=== PATIENT | male | born 1960 | race Caucasian/White ===

== ENCOUNTER 2018-01-04 16:24 | Inpatient (IN) | payer OTHER ==
[~2018-01-04] VITALS: Ht 170.2 cm; Wt 93.0 kg
[2018-01-04] MEDS ORDERED: HYDROCODONE/APAP 10MG-325MG TAB PO ONE (16:45)
--- NOTE | 2018-01-04 17:32 | Diagnostic Imaging Report ---
PROCEDURE:KNEE RIGHT THREE VIEWS COMPARISON:None. INDICATIONS:RIGHT KNEE PAIN, FALL SATUR FINDINGS: 3 views of the right knee (AP, lateral, and oblique) There are no fractures, dislocations, lytic or blastic lesions. The bones are well-mineralized. There is chondrocalcinosis of the knee joint. Mild osteoarthritis with sharpening of the tibial spines, small lateral and patellofemoral osteophytes. Prominent vascular calcifications CONCLUSION: No acute fracture or dislocation of the right knee. 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 Dictated by: Zuhair Rivero M.D. on 01/04/2018 at 17:37 Electronically approved by: Zuhair Rivero M.D. on 01/04/2018 at 17:37
[2018-01-04 17:54] LABS: BASOPHILS # (AUTO) 0.1 (0.0-0.1); BASOPHILS % 0.4 % (0.0-1.0); EOSINOPHILS # (AUTO) 0.4 (0.0-0.4); EOSINOPHILS % 3.3 % (0.0-6.0); HEMATOCRIT 35.2 % (38.2-49.6); LYMPHOCYTES # (AUTO) 1.4 (1.0-3.2); LYMPHOCYTES % 10.8 % (18.0-39.1); MEAN CORPUSCULAR HGB CONC 34.1 g/dL (31-35); NEUTROPHILS # (AUTO) 9.7 (2.1-6.9); NEUTROPHILS % 77.1 % (38.7-80.0); PLATELET COUNT 205 x10e3/uL (140-360); RED BLOOD COUNT 4.14 x10e6/uL (4.3-5.7); RED CELL DISTRIBUTION WIDTH 12.2 % (11.7-14.4)
[2018-01-04] MEDS ORDERED: VANCOMYCIN 1GM/NS 250 ML 250 ML IV SCH (18:00)
[2018-01-04 18:09] LABS: ANION GAP 16.1 mmol/L (8-16); CALCIUM 9.7 mg/dL (8.4-10.2); CREATININE, SERUM 1.93 mg/dL (0.72-1.25); POTASSIUM 5.1 mmol/L (3.5-5.1)
[2018-01-04] MEDS ORDERED: ONDANSETRON HCL INJ 2 MG/ML VIAL IV STA (18:13)
[2018-01-04] MEDS ORDERED: HYDROMORPHONE 1MG/1ML INJ IV STA (18:21)
[2018-01-04 18:33] LABS: BODY FLUID COLOR YELLOW; BODY FLUID TYPE SYNOVIAL
[2018-01-04 18:34] LABS: BODY FLUID APPEARANCE TURBID
[2018-01-04 18:35] LABS: RBC,BODY FLUID 319 cells/uL; WBC,BODY FLUID 19250 cells/uL
[2018-01-04] MEDS ORDERED: SODIUM CHLORIDE 0.9% 1000ML 1,000 ML IV STA (19:16)
[2018-01-04 19:23] LABS: LYMPHOCYTES,BODY FLUID 3 %; MONO/MACROPHG,BODY FLUID 6 %; NEUTROPHILS,BODY FLUID 91 %
[2018-01-04] MEDS ORDERED: INSULIN REGULAR, HUMAN 100 UNIT/1 ML 3ML VIAL SQ ONE (19:30)
[2018-01-04] MEDS ORDERED: DEXTROSE 50% SYRINGE 50 ML IV PRN (20:15)
[2018-01-04] MEDS: INSULIN REGULAR, HUMAN 100 UNIT/1 ML 3ML VIAL SQ SCH (21:00)
[2018-01-04] MEDS: HYDROMORPHONE 1MG/1ML INJ IV PRN (21:23)
[2018-01-04] MEDS: ONDANSETRON HCL INJ 2 MG/ML VIAL IV PRN (21:24)
[2018-01-04 21:37] VITALS: BP 203/94
[2018-01-04] MEDS: VANCOMYCIN 750MG/NS 150ML IVPB 150 ML IV SCH (22:04)
[2018-01-04] MEDS: SODIUM CHLORIDE 0.9% 1000ML 1,000 ML IV SCH (22:04)
[2018-01-04 22:32] VITALS: BP 184/90
[2018-01-04 22:41] VITALS: BP 184/90
[2018-01-04 22:44] VITALS: BP 184/90
[2018-01-04 23:10] VITALS: BP 139/83
[2018-01-04] MEDS: PIPERACILLIN/TAZO 2.25 GM 50 ML IV SCH (23:11)
[2018-01-05] VITALS: BP 174/98
[2018-01-05] MEDS: HYDROMORPHONE 1MG/1ML INJ IV PRN (01:32)
[2018-01-05] MEDS: ONDANSETRON HCL INJ 2 MG/ML VIAL IV PRN (01:32)
[2018-01-05 05:45] LABS: BASOPHILS % 0.4 % (0.0-1.0); EOSINOPHILS # (AUTO) 0.5 (0.0-0.4); EOSINOPHILS % 4.6 % (0.0-6.0); HEMATOCRIT 34.4 % (38.2-49.6); HEMOGLOBIN 11.5 g/dL (14.0-18.0); LYMPHOCYTES # (AUTO) 1.6 (1.0-3.2); LYMPHOCYTES % 13.6 % (18.0-39.1); MEAN CORPUSCULAR HGB CONC 33.4 g/dL (31-35); MEAN CORPUSCULAR VOLUME 86.9 fL (81-99); MONOCYTES % 8.5 % (4.4-11.3); NEUTROPHILS # (AUTO) 8.3 (2.1-6.9); NEUTROPHILS % 72.5 % (38.7-80.0); PLATELET COUNT 208 x10e3/uL (140-360); RED BLOOD COUNT 3.96 x10e6/uL (4.3-5.7); RED CELL DISTRIBUTION WIDTH 12.3 % (11.7-14.4)
[2018-01-05] MEDS: SODIUM CHLORIDE 0.9% 1000ML 1,000 ML IV SCH (05:53)
[2018-01-05] MEDS: PIPERACILLIN/TAZO 2.25 GM 50 ML IV SCH ×3 (05:53→17:26)
[2018-01-05 06:12] LABS: ALBUMIN 2.7 g/dL (3.5-5.0); ALBUMIN/GLOBULIN RATIO 0.6 (0.8-2.0); ANION GAP 14.7 mmol/L (8-16); CALCIUM 9.2 mg/dL (8.4-10.2); CREATININE, SERUM 1.77 mg/dL (0.72-1.25); POTASSIUM 4.7 mmol/L (3.5-5.1)
[2018-01-05 07:30] VITALS: BP 175/77
[2018-01-05 08:00] VITALS: BP 175/77
[2018-01-05] MEDS ORDERED: DEXTROSE 50% SYRINGE 50 ML IV PRN (08:15)
[2018-01-05] MEDS: HYDROCODONE/APAP 5MG-325MG TAB PO PRN ×3 (08:43→20:48)
[2018-01-05] MEDS: INSULIN REGULAR, HUMAN 100 UNIT/1 ML 3ML VIAL SQ SCH (08:54)
[2018-01-05] MEDS: VANCOMYCIN 750MG/NS 150ML IVPB 150 ML IV SCH ×2 (09:09→20:39)
[2018-01-05] MEDS: HYDRALAZINE HCL 20 MG/ML VIAL IV PRN (09:23)
[2018-01-05] MEDS ORDERED: ATORVASTATIN CA20 MG PO (09:48)
[2018-01-05] MEDS ORDERED: METFORMIN HCL500 M2 PO (09:48)
[2018-01-05] MEDS ORDERED: LISINOPRIL10 MG PO (09:48)
[2018-01-05] MEDS ORDERED: ATENOLOL50 MG PO (09:48)
[2018-01-05] MEDS: INSULIN LISPRO 100 UNIT/1 ML 3ML VIAL SQ SCH ×3 (11:33→21:54)
[2018-01-05 11:47] VITALS: BP 128/76
[2018-01-05] MEDS: ACETAMINOPHEN 325 MG TAB PO PRN (12:51)
[2018-01-05 16:00] VITALS: BP 148/79
[2018-01-05] MEDS: FAMOTIDINE 20 MG TAB PO SCH (16:35)
[2018-01-05 20:00] VITALS: BP 143/80
[2018-01-05] MEDS: ATORVASTATIN 40 MG TAB PO SCH (20:48)
[2018-01-05] MEDS ORDERED: ATORVASTATIN 20 MG TAB PO SCH (21:00)
[2018-01-06] VITALS (8 sets, daily range): BP systolic 144–205; BP diastolic 78–108
[2018-01-06] MEDS: HYDRALAZINE HCL 20 MG/ML VIAL IV PRN ×2 (00:30→20:20)
[2018-01-06] MEDS: PIPERACILLIN/TAZO 2.25 GM 50 ML IV SCH ×3 (00:40→12:24)
[2018-01-06] MEDS: SODIUM CHLORIDE 0.9% 1000ML 1,000 ML IV SCH ×2 (00:54→12:38)
[2018-01-06] MEDS: HYDROMORPHONE 1MG/1ML INJ IV PRN (00:55)
[2018-01-06] MEDS: ACETAMINOPHEN 325 MG TAB PO PRN (02:16)
[2018-01-06 05:05] LABS: BASOPHILS % 0.4 % (0.0-1.0); EOSINOPHILS # (AUTO) 0.6 (0.0-0.4); EOSINOPHILS % 5.5 % (0.0-6.0); HEMATOCRIT 31.7 % (38.2-49.6); HEMOGLOBIN 10.6 g/dL (14.0-18.0); LYMPHOCYTES # (AUTO) 1.6 (1.0-3.2); LYMPHOCYTES % 14.7 % (18.0-39.1); MEAN CORPUSCULAR HEMOGLOBIN 28.8 pg (28-32); MEAN CORPUSCULAR HGB CONC 33.4 g/dL (31-35); MEAN CORPUSCULAR VOLUME 86.1 fL (81-99); MONOCYTES # (AUTO) 0.9 (0.2-0.8); MONOCYTES % 8.3 % (4.4-11.3); NEUTROPHILS # (AUTO) 7.6 (2.1-6.9); NEUTROPHILS % 70.7 % (38.7-80.0); PLATELET COUNT 213 x10e3/uL (140-360); RED BLOOD COUNT 3.68 x10e6/uL (4.3-5.7); RED CELL DISTRIBUTION WIDTH 12.2 % (11.7-14.4)
[2018-01-06 05:25] LABS: ANION GAP 12.5 mmol/L (8-16); CALCIUM 8.7 mg/dL (8.4-10.2); CREATININE, SERUM 1.64 mg/dL (0.72-1.25); MAGNESIUM 1.9 MG/DL (1.3-2.1); POTASSIUM 5.5 mmol/L (3.5-5.1)
[2018-01-06] MEDS: HYDROCODONE/APAP 5MG-325MG TAB PO PRN ×2 (06:01→10:48)
[2018-01-06] MEDS: VANCOMYCIN 750MG/NS 150ML IVPB 150 ML IV SCH (08:18)
[2018-01-06] MEDS: FAMOTIDINE 20 MG TAB PO SCH ×2 (08:18→17:22)
[2018-01-06] MEDS: LISINOPRIL 20 MG TAB PO SCH (08:18)
[2018-01-06] MEDS: ATENOLOL 50 MG TAB PO SCH (08:19)
[2018-01-06] MEDS: INSULIN LISPRO 100 UNIT/1 ML 3ML VIAL SQ SCH ×4 (08:58→21:00)
[2018-01-06] MEDS ORDERED: LISINOPRIL 10 MG TAB PO SCH (09:00)
[2018-01-06] MEDS ORDERED: TRAMADOL HCL 50 MG TAB PO PRN (10:30)
[2018-01-06] MEDS ORDERED: SOD POLYSTYRENE SULFONATE SUSP 15 GM/60 ML BTL PO NR (10:30)
[2018-01-06] MEDS ORDERED: FENTANYL 25 MCG/HR PATCH TOP SCH (11:45)
[2018-01-06] MEDS: DOCUSATE SODIUM 100 MG CAP PO SCH ×2 (12:01→17:22)
[2018-01-06] MEDS: POLYETHYLENE GLYCOL 3350 17 GM PACK PO SCH ×2 (12:01→17:22)
--- NOTE | 2018-01-06 13:18 | Consultation ---
DATE OF CONSULTATION: This patient is a 57-year-old who has history of obesity. The patient a few days ago fell at the curb outside a store. Since then he has been having pain in his leg with abrasion, getting progressively worse. Also, there was swelling in the knee itself. Patient came to the emergency room where he was admitted. He had an x-ray that showed there is no acute fracture. Findings suggestive of CPPD arthropathy in the right knee. Apparently he underwent arthrocentesis that showed WBC of 19,250 and RBCs 309. His sodium is 135, potassium 5.5, creatinine 1.64, glucose of 309. PHYSICAL EXAMINATION GENERAL: He is currently alert and oriented, does not seem to be in acute distress. VITALS: Stable, currently afebrile. HEENT: Not icteric. NECK: Supple. CHEST: Clear. HEART: No murmur. ABDOMEN: Soft. KNEE: There is an abrasion on the knee. There are some swelling and redness. IMPRESSION: Trauma to the knee with effusion, probably reaction, reactive to the trauma. I do not think there is infection. Maybe there is some cellulitis. Will discontinue vancomycin and Zosyn. Will put him on clindamycin. Can switch to oral clindamycin in the morning. Will also give him Solu-Medrol to help with the inflammation. If the pain is better tomorrow, can discharge with oral clindamycin and a Medrol pack. Will follow. Job#: [id number]
[2018-01-06] MEDS: CLINDAMYCIN 600MG/D5W 50ML 50 ML IV SCH ×2 (15:00→21:39)
[2018-01-06] MEDS: HYDROCODONE/APAP 10MG-325MG TAB PO PRN ×2 (15:48→21:15)
[2018-01-06] MEDS ORDERED: DOCUSATE SODIUM 100 MG CAP PO SCH (17:00)
[2018-01-06] MEDS ORDERED: POLYETHYLENE GLYCOL 3350 17 GM PACK PO SCH (17:00)
[2018-01-06] MEDS: METHYLPREDNISOLONE SOD SUCC 40 MG/ML VIAL IV SCH (20:57)
[2018-01-06] MEDS: ATORVASTATIN 40 MG TAB PO SCH (20:57)
[2018-01-06] MEDS: BALSAM PERU/CASTOR OIL 60 GM OINT...G. TP SCH ×2 (20:57→21:00)
[2018-01-07] MEDS: SODIUM CHLORIDE 0.9% 1000ML 1,000 ML IV SCH (00:24)
[2018-01-07 00:26] VITALS: BP 177/92
[2018-01-07 04:00] VITALS: BP 193/97
[2018-01-07] MEDS: HYDRALAZINE HCL 20 MG/ML VIAL IV PRN ×2 (05:00→12:21)
[2018-01-07] MEDS: HYDROCODONE/APAP 10MG-325MG TAB PO PRN ×2 (05:00→12:21)
[2018-01-07 05:13] LABS: BASOPHILS % 0.2 % (0.0-1.0); EOSINOPHILS % 0.1 % (0.0-6.0); HEMATOCRIT 36.1 % (38.2-49.6); HEMOGLOBIN 11.9 g/dL (14.0-18.0); LYMPHOCYTES # (AUTO) 0.8 (1.0-3.2); LYMPHOCYTES % 7.4 % (18.0-39.1); MEAN CORPUSCULAR VOLUME 87.8 fL (81-99); MONOCYTES # (AUTO) 0.1 (0.2-0.8); MONOCYTES % 1.1 % (4.4-11.3); NEUTROPHILS # (AUTO) 9.6 (2.1-6.9); NEUTROPHILS % 90.5 % (38.7-80.0); PLATELET COUNT 255 x10e3/uL (140-360); RED BLOOD COUNT 4.11 x10e6/uL (4.3-5.7); RED CELL DISTRIBUTION WIDTH 12.1 % (11.7-14.4)
[2018-01-07 05:38] LABS: ANION GAP 15.9 mmol/L (8-16); CALCIUM 9.6 mg/dL (8.4-10.2); CREATININE, SERUM 1.57 mg/dL (0.72-1.25); MAGNESIUM 2.1 MG/DL (1.3-2.1); POTASSIUM 4.9 mmol/L (3.5-5.1)
[2018-01-07] MEDS: CLINDAMYCIN 600MG/D5W 50ML 50 ML IV SCH (05:39)
[2018-01-07] MEDS ORDERED: BALSAM PERU/CASTOR OIL 5 GM OINT...G. TP SCH (06:00)
[2018-01-07] MEDS: ACETAMINOPHEN 325 MG TAB PO PRN (06:12)
[2018-01-07] MEDS: ATENOLOL 50 MG TAB PO SCH (07:22)
[2018-01-07] MEDS: INSULIN LISPRO 100 UNIT/1 ML 3ML VIAL SQ SCH ×2 (07:30→12:30)
[2018-01-07 08:05] VITALS: BP 159/82
[2018-01-07] MEDS: FAMOTIDINE 20 MG TAB PO SCH (08:52)
[2018-01-07] MEDS: DOCUSATE SODIUM 100 MG CAP PO SCH (08:52)
[2018-01-07] MEDS: METHYLPREDNISOLONE SOD SUCC 40 MG/ML VIAL IV SCH (08:52)
[2018-01-07] MEDS: POLYETHYLENE GLYCOL 3350 17 GM PACK PO SCH (08:52)
[2018-01-07] MEDS: LISINOPRIL 20 MG TAB PO SCH (08:53)
[2018-01-07] MEDS ORDERED: PREDNISONE10 MG PO (09:13)
[2018-01-07] MEDS ORDERED: CLEOCIN HCL150 MG PO (09:13)
[2018-01-07] MEDS ORDERED: ULTRAM 50MG50 MG PO (09:13)
[2018-01-07] MEDS: BALSAM PERU/CASTOR OIL 60 GM OINT...G. TP SCH (09:22)
[2018-01-07] MEDS ORDERED: NEOMYCIN/POLYMYXIN/BACITRACIN 15 GM TUBE TOP SCH (09:30)
[2018-01-07] MEDS ORDERED: CLINDAMYCIN HC150 MG PO (10:31)
[2018-01-07 12:00] VITALS: BP 160/92
[2018-01-07] MEDS ORDERED: INSULIN LISPRO 100 UNIT/1 ML 3ML VIAL SQ SCH ×2 (12:15→12:30)
--- NOTE | 2018-01-07 20:32 | Discharge Summary ---
AUDIO CUTTING IN AND OUT IN MULTIPLE PORTIONS OF THE REPORT ADMISSION DIAGNOSES 1. Right knee cellulitis wound. 2. Type-2 diabetes. 3. Acute kidney injury versus chronic kidney disease. 4. Hyponatremia. DISCHARGE DIAGNOSES 1. Right knee cellulitis wound. 2. Type-2 diabetes. 3. Acute kidney injury versus chronic kidney disease. 4. Hyponatremia. 5. Ruled out right knee fracture. 6. Ruled out septic joint arthritis. HISTORY: Patient has history of type-2 diabetes, high blood pressure. Surgical history of left rotator cuff surgery. HOSPITAL COURSE: A 57-year-old male complains of knee pain and wounds, status post trip on a curb on Wednesday. He started to bleed and swell right after. He denies fever and drainage. He went home and cleaned the wound and applied antibiotic ointment. Since then, he complains of limited range of motion and strength of right lower extremity. Pain is worse with movement, nothing improved the pain. On admission, patient was started on vancomycin and Zosyn. Patient had a right knee aspiration in the ER and the culture was negative. X-ray showed no acute fracture or dislocation. Patient was resumed on home medications for other diagnosis. He was started on IV fluids for the SONI. Patient's pain was controlled with fentanyl patch and steroids. Knee improved on the IV antibiotics. So, per ID, patient was sent home on clindamycin for 14 more days, as well as the p.o. steroids. On day of discharge, WBC 3, hemoglobin/hematocrit 36. Sodium 133, , creatinine 1.57, BUN . Vital signs stable. Patient afebrile. He will discharge home and follow up in 2 weeks. Patient understands discharge instructions and followup and agrees to plan. Dictated by: Camille Mcnamara NP TORREY MCNEILL MD Job#: [id number] CQ
== END 2018-01-07 13:31 | disposition home or self-care (01) | DRG 603 ==
LOC: ER 16:24 → ERHOLD 20:11 → MED/SURG2 21:42
PROVIDERS: ADMIT Internal Medicine; ATTEND Internal Medicine
PROC: 0S9C3ZX Drainage of Right Knee Joint, Percutaneous Approach, Diagnostic (ICD-10-PCS; principal; 2018-01-04)
DX: L03.115 Cellulitis of right lower limb (principal); E87.1 Hypo-osmolality and hyponatremia; N17.9 Acute kidney failure, unspecified; Z83.3 Family history of diabetes mellitus; Z88.5 Allergy status to narcotic agent; R51 Headache; E66.9 Obesity, unspecified; Z71.3 Dietary counseling and surveillance; N18.9 Chronic kidney disease, unspecified; S80.211A Abrasion, right knee, initial encounter; W01.0XXA Fall on same level from slipping, tripping and stumbling without subsequent striking against object, initial encounter; Y93.01 Activity, walking, marching and hiking; Y92.480 Sidewalk as the place of occurrence of the external cause; K59.00 Constipation, unspecified; E87.5 Hyperkalemia; M25.461 Effusion, right knee; Z68.32 Body mass index [BMI] 32.0-32.9, adult; I12.9 Hypertensive chronic kidney disease with stage 1 through stage 4 chronic kidney disease, or unspecified chronic kidney disease; E11.22 Type 2 diabetes mellitus with diabetic chronic kidney disease
CPT/HCPCS: 36415; 80048; 80053; 82948; 83036; 83735; 85025; 87070; 87205; 89051; 93005; 99284; J0360; J1170; J2405; J2543; J2920; J3370; J7030

== ENCOUNTER 2020-03-07 15:36 | Emergency (ER) | payer MEDICARE, OTHER ==
[~2020-03-07] VITALS: Ht 172.7 cm; Wt 98.5 kg
[~2020-03-07 15:36] MED LIST: ATENOLOL50 MG PO; ATORVASTATIN CA20 MG PO; CLEOCIN HCL150 MG PO; CLINDAMYCIN HC150 MG PO; LISINOPRIL10 MG PO; METFORMIN HCL500 M2 PO; PREDNISONE10 MG PO; ULTRAM 50MG50 MG PO
[2020-03-07] MEDS ORDERED: MORPHINE SULFATE 2 MG/ML SYR 1ML IV STA (16:05)
[2020-03-07] MEDS ORDERED: ONDANSETRON HCL INJ 2MG/ML 2ML 2 MG/ML VIAL IV STA (16:05)
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
[2020-03-07] MEDS ORDERED: MORPHINE SULFATE INJ 4 MG/ML INJ 1ML ONE (16:24)
[2020-03-07] MEDS ORDERED: ONDANSETRON HCL INJ 2MG/ML 2ML 2 MG/ML VIAL ONE (16:24)
[2020-03-07] MEDS ORDERED: CEFEPIME 2 GM/NS 0.9% 100 ML 100 ML IV STA (16:33)
[2020-03-07] MEDS ORDERED: VANCOMYCIN 1GM/NS 250 ML 250 ML IV ONE (16:45)
--- NOTE | 2020-03-07 16:46 | NUR ---
Pt is very poor historian
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
--- OUTSIDE RECORDS SUMMARY | 2020-03-07 16:52 | XMS REPORT | Clinical Summary ---
Author Author [facility] Organization [facility] Address Unknown Phone Unavailable Care Team Providers Care Handbag Finisher Name Role Phone Pranay Issa MD PCP Allergies Comments Active Allergy Reactions Severity Noted Date HALLUCINATE Morphine Other (See 06/21/2017 Comments) Medications End Date Status Medication Sig Dispensed Refills Start Date Active atenolol (TENORMIN) 50 MG Take 50 mg by 0 tablet mouth. Active multivitamin (THERAGRAN) Take 1 tablet 0 tablet by mouth daily. Active atorvastatin (LIPITOR) 40 Take 40 mg by 0 MG tablet mouth daily. Active predniSONE (DELTASONE) 10 Take by mouth 0 mg tablet pack daily. follow package directions Active metFORMIN (GLUCOPHAGE) Take 500 mg 0 500 mg tablet by mouth 2 (two) times a day with meals. 04/12/2019 Discontinued (Discontinued b y another clinician) lisinopril Take 40 mg by 0 (PRINIVIL,ZESTRIL) 40 mg mouth daily. tablet Active Problems Problem Noted Date Tremors of nervous system 03/25/2018 Follow-up examination after orthopedic surgery 10/21 S/P left rotator cuff repair 09/15/2017 Nontraumatic rupture of left long head biceps tendon 09/02/2017 Acute pain of left shoulder 06/18/2017 Obesity (BMI 33.86) 06/18/2017 Complete tear of left rotator cuff 04/16/2017 Partial tear subscapularis tendon, left, subsequent e ncounter 04/16/2017 Encounters Care Team Description Date Type Specialty Benja Brush MD S/P left rotator cuff repair (Primary Dx ); Tremors of nervous system 01/10/2020 Office Visit Orthopedic Surgery 01/10/2020 Travel 01/04/2020 Travel Benja Brush MD Chronic left shoulder pain (Primary Dx) 04/12/2019 Office Visit Orthopedic Surgery after 03/07/2019 Surgical History Surgery Date Site/Laterality Comments RIBS UNILATERAL KNEE ARTHROSCOPY Left REPAIR, ROTATOR CUFF, 09/08/2017 Shoulder/Left Procedur e: REPAIR, ROTATOR CUFF, ARTHROSCOPIC ARTHROSCOPIC-LEFT; Surgeon : Benja Brush MD; Location: [facility]; Service: Orthop edics; Laterality: Left; Medical devices from this surgery are i n the Implants section. ACROMIOPLASTY 09/08/2017 Shoulder/Left Procedure: LEFT , WITH BICEPS TENDON DEBRIDEMENT; Surgeon: Benja Brush MD; Locatio n: [facility]; Service: Orthopedics; Laterality: Left; Medical devices from this surgery are i n the Implants section. ORTHOPEDIC SURGERY 09/08/2017 left shoulder Medical History Medical History Date Comments Hypertension Diabetes mellitus (HCC) Reflux gastritis Family History Medical History Relation Name Comments No Known Problems Father No Known Problems Mother Relation Name Status Comments Father Mother Social History Date Tobacco Use Types Packs/Day Years Used Never Smoker Smokeless Tobacco: Never Used Drinks/Week oz/Week Comments Alcohol Use SOCIALLY Yes Sex Assigned at Date Recorded Not on file Last Filed Vital Signs Reading Time Taken Comments Vital Sign - - Blood Pressure - - Pulse - - Temperature - - Respiratory Rate - - Oxygen Saturation - - Inhaled Oxygen Concentration 93 kg (205 lb) 01/10/2020 12:59 PM CDT Weight 170.2 cm (5' 7") 01/10/2020 12:59 PM CDT Height 32.11 01/10/2020 12:59 PM CDT Body Mass Index Plan of Treatment Health Maintenance Due Date Last Done Comments DIABETIC RETINAL EYE EXAM 1961 DIABETIC FOOT EXAM 10/05/1971 URINE MICROALBUMIN 10/05/1971 COLONOSCOPY SCREENING 10/05/2011 SHINGLES VACCINES (#1) 10/05/2011 INFLUENZA VACCINE 01/06/2020 Implants Device Identifier Shelf Expiration Date Model / Serial / L ot Implanted Type Area Manufactur er 05/06/2022 AR [id number] / / [id number] Apollorf Xl90, Aspirating Ablator IPM Left: Should er ARTHREX 90 - [id number] IMPLANT ORTHOPEDIC Implanted: Qty: 1 on 09/08/2017 by DEVICES Benja De Oliveira MD at [facility] Description:Not an implant. This is a supply 02/04/2019 AR [id number] / / [id number] Lysite Sut Swivelock C 5.5x19.1mm - Orthopedic Left: Shou lder ARTHREX [id number] Implanted: Qty: 1 on 09/08/2017 by Implants Benja Brush MD at [facility] 11/04/2018 AR [id number] / / [id number] Lysite Sut Swivelock C 5.5x19.1mm - Orthopedic Left: Shou lder ARTHREX [id number] [employer] Implanted: Qty: 1 on 09/08/2017 by Implants Benja Brush MD at [facility] 03/06/2019 AR [id number] / / [id number] Lysite Sut Swivelock Biocmpst C Orthopedic Left: Shoulder ARTHREX Vntd 4.75x19.1mm - [id number] [employer] Implanted: Qty: 1 on 09/08/2017 by Implants Benja Brush MD at [facility] 02/04/2019 AR [id number] / / [id number] Lysite Sut Swivelock Biocmpst Orthopedic Left: Shoulder ARTHREX 4.75x19.1mm - [id number] [employer] Implanted: Qty: 1 on 09/08/2017 by Implants Benja Brush MD at [facility] Procedures Comments Procedure Name Priority Date/Time Associated Diag nosis IN ARTHROCENTESIS Routine 01/10/2020 S/P left rot ator cuff ASPIR&/INJ MAJOR JT/BURSA 1:00 PM CDT repair W/O US XR SHOULDER 2+ VW LEFT Routine 04/12/2019 Chronic left shoulder 11:39 AM ULTIMATE HOOPS REFEREE pain IN ARTHROCENTESIS Routine 04/12/2019 Chronic left shoulder ASPIR&/INJ MAJOR JT/BURSA 11:15 AM ULTIMATE HOOPS REFEREE pain W/O US after 03/07/2019 Results * Large Joint Arthrocentesis: shoulder, L glenohumeral (01/10/2020 1:00 PM CDT) Narrative Performed At Benja Brush MD 01/10/2020 1:26 PM Large Joint Arthrocentesis: shoulder, L glenohumeral Consent given by: patient Supporting Documentation Indications: pain Procedure Details Location: shoulder - L glenohumeral Left side: Needle size: 22 G Approach: posterior Left shoulder medications administered: 3 mL lidocaine 10 mg/mL (1 %); 80 mg methylPREDNISolone acetate 40 mg/mL * XR Shoulder 2+ Vw Left (04/12/2019 11:39 AM ULTIMATE HOOPS REFEREE) Specimen Narrative Performed At [facility] Three-view x-rays of the left shoulder: There is no significant glenohumeral arthropathy. There may b e a little upward shift of the humeral head on the glenoid consistent with rotator cuff atrophy or insufficiency Performing Organization Address City/State/ZIP Code P donald Number [facility] [id number] [place] [address] * Large Joint Arthrocentesis: shoulder, L glenohumeral (04/12/2019 11:15 AM ULTIMATE HOOPS REFEREE) Narrative Performed At Benja Brush MD 04/12/2019 1 2:17 PM Large Joint Arthrocentesis: shoulder, L glenohumeral Consent given by: patient Supporting Documentation Indications: pain Procedure Details Location: shoulder - L glenohumeral Left side: Needle size: 22 G Approach: posterior Left shoulder medications administered: 80 mg methylPREDNISolone acetate 80 mg/mL; 3 mL lidocaine 10 mg/mL (1 %) after 03/07/2019 Insurance Type Payer Benefit Subscriber ID Effective Phone Address Plan / Dates Group Workers Comp WORKERS COMP MISC [id number] 2017- WORKER'S Present COMP [id number] Comp (Home) [place], [place] [address] [address] Personal/F Self [address] [place] (Home) [place], [place] [address] Advance Directives For more information, please contact: [phone] Patient Chief Ultrasound Technologist Explanation Type Date Recorded Advance Directives, 06/21/2017 12:29 PM 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
--- OUTSIDE RECORDS SUMMARY | 2020-03-07 16:53 | XMS REPORT | Continuity of Care Document ---
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 CatchDRUGS OF ABUSE SCREEN [id number] 09:35:00* Test Item Value Reference Range Interpretation Comments UA PH DIPSTICK (test code = LIZZETTE) 5.0-8.0 URN COCAINE (test code = COCAURN) NEGATIVE <300 ng/mL URN CANNABINOIDS (test code = CANNABURN) NEGATIVE <50 ng/mL URN AMPHETAMINE (test code = AMPHETURN) NEGATIVE <1000 ng/mL URN BARBITURATE (test code = BARBITURN) NEGATIVE <200 ng/mL URN BENZODIAZEPINE (test code = BENZOURN) NEGATIVE <200 ng/mL URN OPIATES (test code = OPIATURN) POSITIVE <300 ng/mL A This test provides only a preliminary test result. A morespecific alternate chemical method must be used in order toobtain a confirmed analytical result. Gas chromatography/mass spectrometry (GC/MS) is thepreferred confirmatory method. Other chemical confirmationmethods are available. Clinical consideration and professional judgment should be applied to any drug of abusetest result, particularly when preliminary positive resultsare used.Unconfirmed screening results must not be used fornon-medical purposes (e.g., employment testing, legaltesting). URN PHENCYCLIDINE (PCP) (test code = PHENCURN) NEGATIVE <25 ng/ mL URN METHADONE (test code = METHAURN) NEGATIVE <300 ng/mL DRUGS OF ABUSE SCREEN [id number] 09:35:00* Test Item Value Reference Range Interpretation Comments UA PH DIPSTICK (test code = LIZZETTE) 7.0 5.0-8.0 URN COCAINE (test code = COCAURN) NEGATIVE <300 ng/mL URN CANNABINOIDS (test code = CANNABURN) NEGATIVE <50 ng/mL URN AMPHETAMINE (test code = AMPHETURN) NEGATIVE <1000 ng/mL URN BARBITURATE (test code = BARBITURN) NEGATIVE <200 ng/mL URN BENZODIAZEPINE (test code = BENZOURN) NEGATIVE <200 ng/mL URN OPIATES (test code = OPIATURN) POSITIVE <300 ng/mL A This test provides only a preliminary test result. A morespecific alternate chemical method must be used in order toobtain a confirmed analytical result. Gas chromatography/mass spectrometry (GC/MS) is thepreferred confirmatory method. Other chemical confirmationmethods are available. Clinical consideration and professional judgment should be applied to any drug of abusetest result, particularly when preliminary positive resultsare used.Unconfirmed screening results must not be used fornon-medical purposes (e.g., employment testing, legaltesting). URN PHENCYCLIDINE (PCP) (test code = PHENCURN) NEGATIVE <25 ng/ mL URN METHADONE (test code = METHAURN) NEGATIVE <300 ng/mL URINALYSIS [id number] 09:30:00* Test Item Value Reference Range Interpretation Comments UA COLOR (test code = COLU) Light-Yellow YELLOW UA APPEARANCE (test code = APPU) CLEAR CLEAR UA GLUCOSE DIPSTICK (test code = DGLUU) 300 (2+) mg/dL NEGATIVE A UA BILIRUBIN DIPSTICK (test code = BILU) NEGATIVE mg/dL NEGATIVE UA KETONE DIPSTICK (test code = KETU) NEGATIVE mg/dL NEGATIVE UA SPECIFIC GRAVITY (test code = SGU) 1.019 1.001-1.035 UA BLOOD DIPSTICK (test code = JACKY) Negative mg/dL NEGATIVE UA PH DIPSTICK (test code = LIZZETTE) 6.5 5.0-8.0 UA PROTEIN DIPSTICK (test code = PROU) 600 (3+) mg/dL NEGATIVE A UA UROBILINIOGEN DIPSTICK (test code = URO) Normal mg/dL NEGATIVE UA NITRITE DIPSTICK (test code = ISABEL) NEGATIVE NEGATIVE UA LEUKOCYTE ESTERASE W REFLEX (test code = LEUUR) NEGATIVE Adwoa/uL NEGATIVE UA WBC (test code = WBCU) per HPF 0-5 UA RBC (test code = RBCU) per HPF 0-5 UA EPITHELIAL CELLS (test code = EPIU) per HPF Few UA BACTERIA (test code = BACU) per HPF NONE Urine Source? Clean [id number] 07:59:00* Test Item Value Reference Range Interpretation Comments GLUBED (test code = GLUBED) 195 mg/dL 74-106 H Performed by certified petroleum refining equipment operator at [facility] [id number] 22:25:00* Test Item Value Reference Range Interpretation Comments GLYCOSYLATED HEMOGLOBIN (HA1C) (test code = GLYHGB) 8.0 % HbA1 SUGGESTED DIAGNOSIS: HbA1C (%) Diabetic >6.4Prediabetes 5.7 - 6.4Normal <5.7 ESTIMATED AVERAGE GLUCOSE (test code = EAG) 183 MG/DL [id number] 20:29:00* Test Item Value Reference Range Interpretation Comments GLUBED (test code = GLUBED) 245 mg/dL 74-106 H Performed by certified petroleum refining equipment operator at [facility] - CT UP EXTREM W/O CONT [id number] 16:28:00 Name: MAXWELL HICKS JR [facility] FSED : 1960 Age/S: 59 / M [address] [facility] [address] Unit #: [id number] Loc: [address] Phys: Kyle Palacios MD [place], [place] [address] Acct: [id number] Dis Date: Status: REG ER PHONE #: Exam Date: 03/02/2020 1610 FAX #: Reason: right elbow pain EXAMS: CPT CODE: [id number] [place] EXTREM W/[place] [address] CT OF THE RIGHT ELBOW WITH SAGITTAL AND CORONAL RECONSTRUCTIONS DIAGNOSIS: Right elbow pain COMPARISON: Right elbow radiographs earlier today Scans were performed with thin sections and reconstructions were obtained. CT radiation dose optimization is achieved for this examination by the use of a CT protocol in accordance with ACR practice standards and adherence to heavy threader's recommendations. FINDINGS/ IMPRESSION: No fracture of the humerus. Radial head is intact. Additionally the trochlea the ulna is intact. The elbow joint is appropriately aligned. No elbow joint effusion is seen. Prominent olecranon enthesophyte is present. Location: [facility] at 1628 Reported and signed by: Reece Tang MD CC: Kyle Palacios MD Te chnologist:LYNN MULLINS RT(R)(CT) CTDI: DLP: Trnscb Date/ Time: 03/02/2020 (1628) t.SDR.RR31 Orig Print D/T: S: 02/06 (3796) PAGE 1 Signed Report C REACTIVE [id number] 14:42:00* Test Item Value Reference Range Interpretation Comments C REACTIVE PROTEIN (test code = CRP) 5.3 0.00-5.00 H URIC [id number] 14:37:00* Test Item Value Reference Range Interpretation Comments URIC ACID (test code = URIC) 7.9 mg/dL 2.6-7.2 H BASIC METABOLIC [id number] 14:35:00* Test Item Value Reference Range Interpretation Comments SODIUM (test code = NA) 135 mmol/L 128-145 N POTASSIUM (test code = K) 4.5 mmol/L 3.5-5.1 N CHLORIDE (test code = CL) 102.0 mmol/L 98-107 N CARBON DIOXIDE (test code = CO2) 24.9 mmol/L 22-29 N ANION GAP (test code = GAP) 13 mmol/L 10-20 N GLUCOSE (test code = GLU) 357 mg/dL 70-110 H BLOOD UREA NITROGEN (test code = BUN) 33 mg/dL 7-22 H GLOMERULAR FILTRATION RATE (test code = GFR) 24 mL/min >=60 Estimated GFR by using Modified MDRD formula.Chronic kidney disease is defined as either kidney damageor GFR <60 mL/min/1.73 m2 for >3 months. CREATININE (test code = CREAT) 2.76 mg/dL 0.55-1.3 H BUN/CREATININE RATIO (test code = BUN/CREA) 12.0 10-20 N CALCIUM (test code = CA) 8.6 mg/dL 8.0-10.5 N CBC W/AUTO [id number] 14:24:00* Test Item Value Reference Range Interpretation Comments WHITE BLOOD CELL (test code = WBC) 12.0 K/mm3 4.5-12.5 N RED BLOOD CELL (test code = RBC) 5.46 mill/mm3 4.0-5.8 N HEMOGLOBIN (test code = HGB) 14.8 gram/dL 13.0-17.5 N HEMATOCRIT (test code = HCT) 46.1 % 42.0-52.0 N MEAN CELL VOLUME (test code = MCV) 84.4 fL 80-98 N MEAN CELL HGB (test code = MCH) 27.1 picogram 27.0-33.0 N MEAN CELL HGB CONCETRATION (test code = MCHC) 32.1 gram/dL 33.0-36. 0 L RED CELL DISTRIBUTION WIDTH (test code = RDW) 12.8 % 11.6-16. 2 N RED CELL DISTRIBUTION WIDTH SD (test code = RDW-SD) 40.0 fL 37 .0-51.0 N PLATELET COUNT (test code = PLT) 241 K/mm3 150-450 N MEAN PLATELET VOLUME (test code = MPV) 8.8 fL 6.7-11.0 N NEUTROPHIL % (test code = NT%) 77.0 % 39.0-69.0 H LYMPHOCYTE % (test code = LY%) 8.6 % 25.0-55.0 L MONOCYTE % (test code = MO%) 8.2 % 0.0-10.0 N EOSINOPHIL % (test code = EO%) 5.6 % 0.0-5.0 H BASOPHIL % (test code = BA%) 0.4 % 0.0-1.0 N NEUTROPHIL # (test code = NT#) 9.20 K/mm3 1.8-7.7 H LYMPHOCYTE # (test code = LY#) 1.03 K/mm3 1.0-5.0 N MONOCYTE # (test code = MO#) 0.98 K/mm3 0-0.8 H EOSINOPHIL # (test code = EO#) 0.67 K/mm3 0.0-0.5 H BASOPHIL # (test code = BA#) 0.05 K/mm3 0.0-0.2 N MANUAL DIFF REQUIRED (test code = MDIFF) NO - XR ELBOW 2 VIEWS [id number] 13:48:00 FAX: Kyle Palacios MD [place]: MS St: PRE Name: MAXWELL REN JR [facility] FSED : [birth year] Age/S: 59/M [address] [facility] [address] Unit #: [id number] [facility] [address] Phys: Kyle Palacios MD [place], [place] [address] Acct: [id number] Dis Date: Status: PRE ER PHONE #: Exam Date: 03/02/2020 6436 FAX #: Reason: elbow pain EXAMS: CPT CODE: [id number] XR ELBOW [address] [place] [id number] REASON FOR EXAM: elbow pain EXAM ORDER DATE: 03/02/2020 1:26 PM Ordering: Kyle Palacios MD Attending:Kyle Palacios MD Locati on:[facility] PROCEDURE: - XR ELBOW 2 VIEWS RT FINDINGS: 3 views of the right elbow were obtained. The osseous structures are unrema rkable in size and shape. Moderate degenerative changes of the elbow join t. Atherosclerotic calcifications. No evidence of fracture. No evidence of joint effusion IMPRESSION: No acute fractures. Elec tronically Signed by Bigg Adames M.D. on 03/02/2020 at 1348 Reported and signed by: Bigg Adames M.D. CC: Carlos Palacios MD Technologist: LYNN MULLINS RT(R)(CT) Trnscrd Date/Time/By: 03/02/2020 (0586) : By: [email or web address] Orig Print D/T: S: 03/02/2020 (2038) PAGE 1 Signed Report Large Joint Arthrocentesis: shoulder, L [id number] 13:00:00FrBenja anand MD 01/10/2020 1:26 PMLarge Joint Arthrocentesis: shoulder, L glenohumeralConsent given by: patientSupporting DocumentationIndications: pain Procedure DetailsLocation: shoulder - L glenohumeral Left side:Needle size: 22 GApproach: posteriorLeft shoulder medications administered: 3 mL lidocaine 10 m g/mL (1 %); 80 mg methylPREDNISolone acetate 40 mg/mL [facility] K[facility] 1 or 2 Views [id number] 22:28:47Patient: MAXWELL HICKS Date/Time06/12/2019 21:58 CSTReason for ExamInjuryReportDictation location: I15SITRE KNEE 2 VIEWSHISTORY: InjuryFINDINGS:Mild anterior soft tissue swelling. No fracture or dislocation. No joint effusion. Mild osteophyte formation along the patellofemoral compartment. Extensive vascular calcifications.IMPRESSION:Mild anterior soft tissue swelling without a fracture. Final Dictated by: MD Mcgovern SankamanDictated DT/TM: 06/12/2019 10:28 pmSigned by: MD Mcgovern SankamanSigned (Electronic Signature): 06/12/2019 10:28 pmXR Wrist Complete 3+ Views [id number] 22:28:02Patient: MAXWELL HICKS Date/Time06/12/2019 21:58 CSTReason for ExamInjuryReportDictation location: [id number] WRIST 3 VIEWSHISTORY: InjuryFINDINGS:Mild dorsal soft tissue swelling. No fracture or dislocation. Extensive vascular calcifications.IMPRESSION:Soft tissue swelling without a fracture. Final Dictated by: MD Shaniqua, Fatou DT/TM: 06/12/2019 10:27 pmSigned by: MD Mcgovern SankamanSigned (Electronic Signature): 06/12/2019 10:28 pmCT Chest w/o [id number] 22:27:11Patient: MAXWELL HICKS Date/Time06/12/2019 21:45 CSTReason for ExamTraumaReportDictation location: H37CT CHEST WITHOUT IV CONTRAST.HISTORY: TraumaCOMPARISON: None.TECHNIQUE: Axial CT images of the chest were obtained with coronal and/or sagittal reformatted vie ws. Automated exposure control, iterative reconstruction technique, and/or adju stment of mA and/or kV according to patient's size was utilized for radiation do se reduction.IV CONTRAST: None.FINDINGS:Visualized thyroid is unremarkable.The h eart size is normal. No pericardial effusion. Coronary artery calcifications. Th e thoracic aorta is normal in caliber.There are several calcified mediastinal ly mph nodes. No axillary, mediastinal or hilar adenopathy.Calcified left upper lob e pulmonary nodule. There are several small nodules in the left upper lobe measu ring up to 3 mm. No consolidation, pleural effusion or pneumothorax.Visualized u pper abdominal contents are unremarkable.Chronic right rib fractures healed.IMPR ESSION:No evidence of acute intrathoracic injury. Final Dictated by: MD Shaniqua, Fatou DT/TM: 06/12/2019 10:20 pmSigned by: Wan lundberg MD, Meryl (Electronic Signature): 06/12/2019 10:27 pmCT Spine Cervical w/o [id number] 22:19:39Patient: MAXWELL HICKS Date/Time06/12/2019 21:45 CSTReason for ExamTraumaReportDictation location: H37CT CERVICAL SPINE WITHOUT CONTRAST; SAGITTAL AND CORONAL REFORMATTED VIEWS.HISTORY: TraumaCOMPARISON :None.TECHNIQUE: Axial CT images of the cervical spine were obtained with coronal and sagittal reformatted views. Automated exposure control, iterative reconstruction technique, and/or adjustment of mA and/or kV according to patient's size was utilized for radiation dose reduction.IV CONTRAST: No ne.FINDINGS:The cervical alignment is straightened. No cervical spine fracture o r subluxation. No prevertebral soft tissue swelling.Moderate degenerative change s affect the cervical spine with disc space narrowing, endplate sclerosis, anter ior osteophytes.Posterior disc osteophyte complexes noted at C4-C5 and C5-C6 cau se up to moderate spinal canal stenosis and severe left neuroforaminal narrowing .Atherosclerotic calcifications affect the carotid bulbs.IMPRESSION:Moderate cer vical spondylosis without evidence of a fracture or subluxation. Final *Dictated by: MD Shaniqua, JanesHolland Hospitaldriss DT/TM: 06/12/2019 10:17 pmSigne d by: MD Shaniqua, JanesSelect Specialty Hospital-Saginawsammi (Electronic Signature): 06/12/2019 10:19 p mCT Brain/Head w/o [id number] 22:17:04Patient: MAXWELL HICKS Date/Time06/12/2019 21:45 CSTReason for ExamTraumaReportDictation location: H37CT HEAD WITHOUT CONTRAST.HISTORY: TraumaCOMPARISON: No comparison is available.TECHNIQUE: Axial CT images of the head were obtained with coronal and/or sagittal reformatted views. Automated exposure control, iterative reconstruction technique, and/or adjustment of mA and/or kV according to patient's size was utilized for radiation dose reduction.IV CONTRAST: None.FINDINGS:Minimal amount of periv entricular and deep white matter hypodensities are seen, these are most commonly associated with chronic, microvascular ischemic changes. Mild generalized atro phy is noted. Atherosclerotic calcifications affect the carotid siphons.No othe r intracranial abnormalities such as hemorrhage, mass, mass effect, hydrocephalu s, midline shift, extra-axial fluid collection or secondary signs of an acute in farct are noted.The calvarium and skull base are intact. The paranasal sinus and mastoid air cells are clear.IMPRESSION:No evidence of acute intracranial abnorm ality.Minimal chronic microvascular ischemic changes and mild generalized atroph y. Final Dictated by: MD Mcgovern SankamanDictated DT/TM: 2019 10:15 pmSigned by: MD Mcgovern SankamanSigned (Electronic Signature): 06/12/2019 10:17 pmLarge Joint Arthrocentesis: shoulder, L glenohumeral 2019-04-12 11:15:00Benja Brush MD 04/12/2019 12:17 PMLarge Joint Arthrocentesis: shoulder, L glenohumeralConsent given by: patientSupporting DocumentationIndications: pain Procedure DetailsLocation: shoulder - L glenohumeral Left side:Needle size: 22 GApproach: posteriorLeft shoulder medications administered: 80 mg methylPREDNISolone acetate 80 mg/mL; 3 mL lidocaine 10 mg/mL (1 %) Mitchel [id number] 12:05:00* Test Item Value Reference Range Interpretation Comments GLUBED (test code = GLUBED) 176 MG/DL 70-110 H Performed by certified petroleum refining equipment operator at [facility] [id number] 07:53:00* Test Item Value Reference Range Interpretation Comments GLUBED (test code = GLUBED) 123 MG/DL 70-110 H Performed by certified petroleum refining equipment operator at [facility] BASIC METABOLIC [id number] 05:23:00* Test Item Value Reference Range Interpretation Comments SODIUM (test code = NA) 139 mEq/L 134-147 N POTASSIUM (test code = K) 4.4 mEq/L 3.4-5.0 N CHLORIDE (test code = CL) 106 mEq/L 100-108 N CARBON DIOXIDE (test code = CO2) 27 mEq/L 21-33 N ANION GAP (test code = GAP) 10 0-20 N GLUCOSE (test code = GLU) 77 mg/dL 70-110 BLOOD UREA NITROGEN (test code = BUN) 43 mg/dL 7-18 H GLOMERULAR FILTRATION RATE (test code = GFR) 41.7 90-95 L Units of measure = ml/min/1.73 m2 CREATININE (test code = CREAT) 1.7 mg/dL 0.6-1.3 H CALCIUM (test code = CA) 8.2 mg/dL 8.0-10.5 N [id number] 05:23:00* Test Item Value Reference Range Interpretation Comments PHOSPHOROUS (test code = PHOS) 3.3 mg/dL 2.5-4.9 N [id number] 05:23:00* Test Item Value Reference Range Interpretation Comments MAGNESIUM (test code = MAG) 2.60 mg/dL 1.8-2.4 H [id number] 05:08:00* Test Item Value Reference Range Interpretation Comments GLUBED (test code = GLUBED) 65 MG/DL 70-110 L Performed by certified petroleum refining equipment operator at [facility] CBC W/AUTO [id number] 04:45:00* Test Item Value Reference Range Interpretation Comments WHITE BLOOD CELL (test code = WBC) 8.85 x10 3/uL 4.5-11.0 N RED BLOOD CELL (test code = RBC) 4.22 x10 6/uL 4.00-5.60 N HEMOGLOBIN (test code = HGB) 12.3 g/dL 12.5-16.9 L HEMATOCRIT (test code = HCT) 37.7 % 37.5-50.7 N MEAN CELL VOLUME (test code = MCV) 89.3 fL 81.0-99.0 N MEAN CELL HGB (test code = MCH) 29.1 pg 27.0-33.0 N MEAN CELL HGB CONCETRATION (test code = MCHC) 32.6 g/dL 33.0-37. 0 L RED CELL DISTRIBUTION WIDTH CV (test code = RDW) 13.2 % 11.5- 14.5 N RED CELL DISTRIBUTION WIDTH SD (test code = RDW-SD) 43.8 fL 37 .0-54.0 N PLATELET COUNT (test code = PLT) 384 x10 3/uL 150-400 N MEAN PLATELET VOLUME (test code = MPV) 8.8 fL 7.0-9.0 N NEUTROPHIL % (test code = NT%) 61.1 % 56.0-77.0 N IMMATURE GRANULOCYTE % (test code = IG%) 1.2 % 0.0-2.0 N LYMPHOCYTE % (test code = LY%) 21.8 % 14.0-32.0 N MONOCYTE % (test code = MO%) 10.2 % 4.8-9.0 H EOSINOPHIL % (test code = EO%) 5.5 % 0.3-3.7 H BASOPHIL % (test code = BA%) 0.2 % 0.0-2.0 N NUCLEATED RBC % (test code = NRBC%) 0.0 % 0-0 N NEUTROPHIL # (test code = NT#) 5.40 x10 3/uL 2.0-7.6 N IMMATURE GRANULOCYTE # (test code = IG#) 0.11 x10 3/uL 0.00-0.03 H LYMPHOCYTE # (test code = LY#) 1.93 x10 3/uL 1.0-3.8 N MONOCYTE # (test code = MO#) 0.90 x10 3/uL 0.1-0.8 H EOSINOPHIL # (test code = EO#) 0.49 x10 3/uL 0.0-0.2 H BASOPHIL # (test code = BA#) 0.02 x10 3/uL 0.0-0.2 N NUCLEATED RBC # (test code = NRBC#) 0.00 x10 3/uL 0.0-0.1 N MANUAL DIFF REQUIRED (test code = MDIFF) NO [id number] 21:31:00* Test Item Value Reference Range Interpretation Comments GLUBED (test code = GLUBED) 111 MG/DL 70-110 H Performed by certified petroleum refining equipment operator at [facility] [id number] 17:51:00* Test Item Value Reference Range Interpretation Comments GLUBED (test code = GLUBED) 170 MG/DL 70-110 H Performed by certified petroleum refining equipment operator at [facility] [id number] 11:17:00* Test Item Value Reference Range Interpretation Comments GLUBED (test code = GLUBED) 303 MG/DL 70-110 H Performed by certified petroleum refining equipment operator at [facility] CBC W/AUTO [id number] 10:35:00* Test Item Value Reference Range Interpretation Comments WHITE BLOOD CELL (test code = WBC) 6.51 x10 3/uL 4.5-11.0 N RED BLOOD CELL (test code = RBC) 3.79 x10 6/uL 4.00-5.60 L HEMOGLOBIN (test code = HGB) 11.3 g/dL 12.5-16.9 L HEMATOCRIT (test code = HCT) 34.7 % 37.5-50.7 L MEAN CELL VOLUME (test code = MCV) 91.6 fL 81.0-99.0 CONS MEAN CELL HGB (test code = MCH) 29.8 pg 27.0-33.0 N MEAN CELL HGB CONCETRATION (test code = MCHC) 32.6 g/dL 33.0-37. 0 L RED CELL DISTRIBUTION WIDTH CV (test code = RDW) 13.4 % 11.5- 14.5 N RED CELL DISTRIBUTION WIDTH SD (test code = RDW-SD) 45.1 fL 37 .0-54.0 N PLATELET COUNT (test code = PLT) 316 x10 3/uL 150-400 N MEAN PLATELET VOLUME (test code = MPV) 9.1 fL 7.0-9.0 H NEUTROPHIL % (test code = NT%) 68.3 % 56.0-77.0 N IMMATURE GRANULOCYTE % (test code = IG%) 0.6 % 0.0-2.0 N LYMPHOCYTE % (test code = LY%) 17.1 % 14.0-32.0 N MONOCYTE % (test code = MO%) 12.1 % 4.8-9.0 H EOSINOPHIL % (test code = EO%) 1.7 % 0.3-3.7 N BASOPHIL % (test code = BA%) 0.2 % 0.0-2.0 N NUCLEATED RBC % (test code = NRBC%) 0.0 % 0-0 N NEUTROPHIL # (test code = NT#) 4.45 x10 3/uL 2.0-7.6 N IMMATURE GRANULOCYTE # (test code = IG#) 0.04 x10 3/uL 0.00-0.03 H LYMPHOCYTE # (test code = LY#) 1.11 x10 3/uL 1.0-3.8 N MONOCYTE # (test code = MO#) 0.79 x10 3/uL 0.1-0.8 N EOSINOPHIL # (test code = EO#) 0.11 x10 3/uL 0.0-0.2 N BASOPHIL # (test code = BA#) 0.01 x10 3/uL 0.0-0.2 N NUCLEATED RBC # (test code = NRBC#) 0.00 x10 3/uL 0.0-0.1 N MANUAL DIFF REQUIRED (test code = MDIFF) NO RBC [id number] 10:35:00* Test Item Value Reference Range Interpretation Comments ANISOCYTOSIS (test code = ANISO) NORMAL MICROCYTOSIS (test code = MICR) FEW [id number] 07:45:00* Test Item Value Reference Range Interpretation Comments GLUBED (test code = GLUBED) 231 MG/DL 70-110 H Performed by certified petroleum refining equipment operator at [facility] BASIC METABOLIC [id number] 07:03:00* Test Item Value Reference Range Interpretation Comments SODIUM (test code = NA) 139 mEq/L 134-147 N POTASSIUM (test code = K) 4.4 mEq/L 3.4-5.0 CHLORIDE (test code = CL) 105 mEq/L 100-108 N CARBON DIOXIDE (test code = CO2) 30 mEq/L 21-33 N ANION GAP (test code = GAP) 8 0-20 N GLUCOSE (test code = GLU) 265 mg/dL 70-110 H BLOOD UREA NITROGEN (test code = BUN) 60 mg/dL 7-18 H GLOMERULAR FILTRATION RATE (test code = GFR) 31.0 90-95 L Units of measure = ml/min/1.73 m2 CREATININE (test code = CREAT) 2.2 mg/dL 0.6-1.3 H CALCIUM (test code = CA) 7.3 mg/dL 8.0-10.5 L [id number] 07:03:00* Test Item Value Reference Range Interpretation Comments PHOSPHOROUS (test code = PHOS) 3.6 mg/dL 2.5-4.9 N [id number] 07:03:00* Test Item Value Reference Range Interpretation Comments MAGNESIUM (test code = MAG) 2.60 mg/dL 1.8-2.4 H CBC W/AUTO [id number] 06:59:00* Test Item Value Reference Range Interpretation Comments WHITE BLOOD CELL (test code = WBC) 6.51 x10 3/uL 4.5-11.0 N RED BLOOD CELL (test code = RBC) 3.79 x10 6/uL 4.00-5.60 L HEMOGLOBIN (test code = HGB) 11.3 g/dL 12.5-16.9 L HEMATOCRIT (test code = HCT) 34.7 % 37.5-50.7 L MEAN CELL VOLUME (test code = MCV) 91.6 fL 81.0-99.0 CONS MEAN CELL HGB (test code = MCH) 29.8 pg 27.0-33.0 N MEAN CELL HGB CONCETRATION (test code = MCHC) 32.6 g/dL 33.0-37. 0 L RED CELL DISTRIBUTION WIDTH CV (test code = RDW) 13.4 % 11.5- 14.5 N RED CELL DISTRIBUTION WIDTH SD (test code = RDW-SD) 45.1 fL 37 .0-54.0 N PLATELET COUNT (test code = PLT) 316 x10 3/uL 150-400 N MEAN PLATELET VOLUME (test code = MPV) 9.1 fL 7.0-9.0 H NEUTROPHIL % (test code = NT%) 68.3 % 56.0-77.0 N IMMATURE GRANULOCYTE % (test code = IG%) 0.6 % 0.0-2.0 N LYMPHOCYTE % (test code = LY%) 17.1 % 14.0-32.0 N MONOCYTE % (test code = MO%) 12.1 % 4.8-9.0 H EOSINOPHIL % (test code = EO%) 1.7 % 0.3-3.7 N BASOPHIL % (test code = BA%) 0.2 % 0.0-2.0 N NUCLEATED RBC % (test code = NRBC%) 0.0 % 0-0 N NEUTROPHIL # (test code = NT#) 4.45 x10 3/uL 2.0-7.6 N IMMATURE GRANULOCYTE # (test code = IG#) 0.04 x10 3/uL 0.00-0.03 H LYMPHOCYTE # (test code = LY#) 1.11 x10 3/uL 1.0-3.8 N MONOCYTE # (test code = MO#) 0.79 x10 3/uL 0.1-0.8 N EOSINOPHIL # (test code = EO#) 0.11 x10 3/uL 0.0-0.2 N BASOPHIL # (test code = BA#) 0.01 x10 3/uL 0.0-0.2 N NUCLEATED RBC # (test code = NRBC#) 0.00 x10 3/uL 0.0-0.1 N MANUAL DIFF REQUIRED (test code = MDIFF) NO RBC [id number] 06:59:00* Test Item Value Reference Range Interpretation Comments ANISOCYTOSIS (test code = ANISO) CBC W/AUTO [id number] 06:59:00* Test Item Value Reference Range Interpretation Comments WHITE BLOOD CELL (test code = WBC) 6.51 x10 3/uL 4.5-11.0 N RED BLOOD CELL (test code = RBC) 3.79 x10 6/uL 4.00-5.60 L HEMOGLOBIN (test code = HGB) 11.3 g/dL 12.5-16.9 L HEMATOCRIT (test code = HCT) 34.7 % 37.5-50.7 L MEAN CELL VOLUME (test code = MCV) 91.6 fL 81.0-99.0 CONS MEAN CELL HGB (test code = MCH) 29.8 pg 27.0-33.0 N MEAN CELL HGB CONCETRATION (test code = MCHC) 32.6 g/dL 33.0-37. 0 L RED CELL DISTRIBUTION WIDTH CV (test code = RDW) 13.4 % 11.5- 14.5 N RED CELL DISTRIBUTION WIDTH SD (test code = RDW-SD) 45.1 fL 37 .0-54.0 N PLATELET COUNT (test code = PLT) 316 x10 3/uL 150-400 N MEAN PLATELET VOLUME (test code = MPV) 9.1 fL 7.0-9.0 H NEUTROPHIL % (test code = NT%) 68.3 % 56.0-77.0 N IMMATURE GRANULOCYTE % (test code = IG%) 0.6 % 0.0-2.0 N LYMPHOCYTE % (test code = LY%) 17.1 % 14.0-32.0 N MONOCYTE % (test code = MO%) 12.1 % 4.8-9.0 H EOSINOPHIL % (test code = EO%) 1.7 % 0.3-3.7 N BASOPHIL % (test code = BA%) 0.2 % 0.0-2.0 N NUCLEATED RBC % (test code = NRBC%) 0.0 % 0-0 N NEUTROPHIL # (test code = NT#) 4.45 x10 3/uL 2.0-7.6 N IMMATURE GRANULOCYTE # (test code = IG#) 0.04 x10 3/uL 0.00-0.03 H LYMPHOCYTE # (test code = LY#) 1.11 x10 3/uL 1.0-3.8 N MONOCYTE # (test code = MO#) 0.79 x10 3/uL 0.1-0.8 N EOSINOPHIL # (test code = EO#) 0.11 x10 3/uL 0.0-0.2 N BASOPHIL # (test code = BA#) 0.01 x10 3/uL 0.0-0.2 N NUCLEATED RBC # (test code = NRBC#) 0.00 x10 3/uL 0.0-0.1 N MANUAL DIFF REQUIRED (test code = MDIFF) NO RBC [id number] 06:59:00* Test Item Value Reference Range Interpretation Comments ANISOCYTOSIS (test code = ANISO) [id number] 22:20:00* Test Item Value Reference Range Interpretation Comments GLUBED (test code = GLUBED) 326 MG/DL 70-110 H Performed by certified petroleum refining equipment operator at [facility] [id number] 16:28:00* Test Item Value Reference Range Interpretation Comments GLUBED (test code = GLUBED) 207 MG/DL 70-110 H Performed by certified petroleum refining equipment operator at [facility] [id number] 12:08:00* Test Item Value Reference Range Interpretation Comments GLUBED (test code = GLUBED) 221 MG/DL 70-110 H Performed by certified petroleum refining equipment operator at [facility] [id number] 10:10:00* Test Item Value Reference Range Interpretation Comments GLUBED (test code = GLUBED) 242 MG/DL 70-110 H Performed by certified petroleum refining equipment operator at [facility] PROCALCITONIN (PCT)2018-10-31 09:42:00* Test Item Value Reference Range Interpretation Comments PROCALCITONIN (PCT) (test code = PROCAL) 2.00 ng/mL 0.00-0.05 H PROCALCITONIN (PCT) NORMAL RANGE (ADULT): <0.05 NG/ML. * a concentration <0.5 ng/mL represents a low risk of severe sepsis and/or septic shock.* a concentration >2 ng/mL represents a high risk of severe sepsis and/or septic shock.Nevertheless, concentrations <0.5 ng/mL do not exclude aninfection, on account of localized infections (withoutsystemic signs) which can be associated with such lowconcentrations, or a systemic infection in its initialstages (< 6 hours). Furthermore, increased procalcitonincan occur without infection. PCT concentrations between 0.5and 2.0 ng/mL should be interpreted taking into account thepatient's history. It is recommended to retest PCT within6-24 hours if any concentrations <2 ng/mL are obtained. [id number] 09:14:00* Test Item Value Reference Range Interpretation Comments GLUBED (test code = GLUBED) 190 MG/DL 70-110 H Performed by certified petroleum refining equipment operator at [facility] [id number] 08:56:00* Test Item Value Reference Range Interpretation Comments GLUBED (test code = GLUBED) 136 MG/DL 70-110 H Performed by certified petroleum refining equipment operator at [facility] [id number] 08:55:00* Test Item Value Reference Range Interpretation Comments GLUBED (test code = GLUBED) 365 MG/DL 70-110 H Performed by certified petroleum refining equipment operator at [facility] [id number] 08:55:00* Test Item Value Reference Range Interpretation Comments GLUBED (test code = GLUBED) 359 MG/DL 70-110 H Performed by certified petroleum refining equipment operator at [facility] [id number] 08:23:00* Test Item Value Reference Range Interpretation Comments GLUBED (test code = GLUBED) 166 MG/DL 70-110 H Performed by certified petroleum refining equipment operator at [facility] [id number] 05:41:00* Test Item Value Reference Range Interpretation Comments GLUBED (test code = GLUBED) 67 MG/DL 70-110 L Performed by certified petroleum refining equipment operator at [facility] [id number] 05:08:00* Test Item Value Reference Range Interpretation Comments GLUBED (test code = GLUBED) 68 MG/DL 70-110 L Performed by certified petroleum refining equipment operator at [facility] [id number] 04:10:00* Test Item Value Reference Range Interpretation Comments GLUBED (test code = GLUBED) 127 MG/DL 70-110 H Performed by certified petroleum refining equipment operator at [facility] BASIC METABOLIC [id number] 04:00:00* Test Item Value Reference Range Interpretation Comments SODIUM (test code = NA) 137 mEq/L 134-147 N POTASSIUM (test code = K) 3.6 mEq/L 3.4-5.0 N CHLORIDE (test code = CL) 101 mEq/L 100-108 N CARBON DIOXIDE (test code = CO2) 26 mEq/L 21-33 N ANION GAP (test code = GAP) 14 0-20 N GLUCOSE (test code = GLU) 143 mg/dL 70-110 H BLOOD UREA NITROGEN (test code = BUN) 68 mg/dL 7-18 H GLOMERULAR FILTRATION RATE (test code = GFR) 25.6 90-95 L Units of measure = ml/min/1.73 m2 CREATININE (test code = CREAT) 2.6 mg/dL 0.6-1.3 H CALCIUM (test code = CA) 7.4 mg/dL 8.0-10.5 L [id number] 04:00:00* Test Item Value Reference Range Interpretation Comments PHOSPHOROUS (test code = PHOS) 3.2 mg/dL 2.5-4.9 [id number] 04:00:00* Test Item Value Reference Range Interpretation Comments MAGNESIUM (test code = MAG) 2.40 mg/dL 1.8-2.4 N CBC W/AUTO [id number] 03:49:00* Test Item Value Reference Range Interpretation Comments WHITE BLOOD CELL (test code = WBC) 10.43 x10 3/uL 4.5-11.0 N RED BLOOD CELL (test code = RBC) 3.99 x10 6/uL 4.00-5.60 L HEMOGLOBIN (test code = HGB) 11.9 g/dL 12.5-16.9 L HEMATOCRIT (test code = HCT) 34.6 % 37.5-50.7 L MEAN CELL VOLUME (test code = MCV) 86.7 fL 81.0-99.0 N MEAN CELL HGB (test code = MCH) 29.8 pg 27.0-33.0 N MEAN CELL HGB CONCETRATION (test code = MCHC) 34.4 g/dL 33.0-37. 0 N RED CELL DISTRIBUTION WIDTH CV (test code = RDW) 13.0 % 11.5- 14.5 N RED CELL DISTRIBUTION WIDTH SD (test code = RDW-SD) 41.4 fL 37 .0-54.0 N PLATELET COUNT (test code = PLT) 329 x10 3/uL 150-400 N MEAN PLATELET VOLUME (test code = MPV) 9.1 fL 7.0-9.0 H NEUTROPHIL % (test code = NT%) 79.2 % 56.0-77.0 H IMMATURE GRANULOCYTE % (test code = IG%) 1.0 % 0.0-2.0 N LYMPHOCYTE % (test code = LY%) 7.8 % 14.0-32.0 L MONOCYTE % (test code = MO%) 11.9 % 4.8-9.0 H EOSINOPHIL % (test code = EO%) 0.0 % 0.3-3.7 L BASOPHIL % (test code = BA%) 0.1 % 0.0-2.0 N NUCLEATED RBC % (test code = NRBC%) 0.0 % 0-0 N NEUTROPHIL # (test code = NT#) 8.27 x10 3/uL 2.0-7.6 H IMMATURE GRANULOCYTE # (test code = IG#) 0.10 x10 3/uL 0.00-0.03 H LYMPHOCYTE # (test code = LY#) 0.81 x10 3/uL 1.0-3.8 L MONOCYTE # (test code = MO#) 1.24 x10 3/uL 0.1-0.8 H EOSINOPHIL # (test code = EO#) 0.00 x10 3/uL 0.0-0.2 N BASOPHIL # (test code = BA#) 0.01 x10 3/uL 0.0-0.2 N NUCLEATED RBC # (test code = NRBC#) 0.00 x10 3/uL 0.0-0.1 N MANUAL DIFF REQUIRED (test code = MDIFF) NO [id number] 03:26:00* Test Item Value Reference Range Interpretation Comments GLUBED (test code = GLUBED) 214 MG/DL 70-110 H Performed by certified petroleum refining equipment operator at [facility] [id number] 01:41:00* Test Item Value Reference Range Interpretation Comments GLUBED (test code = GLUBED) 311 MG/DL 70-110 H Performed by certified petroleum refining equipment operator at [facility] [id number] 23:49:00* Test Item Value Reference Range Interpretation Comments GLUBED (test code = GLUBED) 421 MG/DL 70-110 H Performed by certified petroleum refining equipment operator at [facility] [id number] 22:40:00* Test Item Value Reference Range Interpretation Comments GLUBED (test code = GLUBED) 367 MG/DL 70-110 H Performed by certified petroleum refining equipment operator at [facility] [id number] 21:46:00* Test Item Value Reference Range Interpretation Comments GLUBED (test code = GLUBED) 382 MG/DL 70-110 H Performed by certified petroleum refining equipment operator at [facility] [id number] 20:42:00* Test Item Value Reference Range Interpretation Comments GLUBED (test code = GLUBED) 382 MG/DL 70-110 H Performed by certified petroleum refining equipment operator at [facility] [id number] 18:43:00* Test Item Value Reference Range Interpretation Comments GLUBED (test code = GLUBED) 323 MG/DL 70-110 H Performed by certified petroleum refining equipment operator at [facility] [id number] 17:39:00* Test Item Value Reference Range Interpretation Comments GLUBED (test code = GLUBED) 321 MG/DL 70-110 H Performed by certified petroleum refining equipment operator at [facility] US RETRO [id number] 16:54:00 Name: MAXWELL HICKS [facility] : 1960 Age/S: 58 / M [address] [place] [address] Unit #: [id number] Loc: [place] [address] Phys: Pierre Patel MD Acct: [id number] Dis Date: Status: ADM IN PHONE #: [phone] Exam Date: 10/30/2018 1613 FAX #: [phone] Reason: eleavted creat EXAMS: CPT CODE: [id number] RETRO LTD [address]406 Procedure: Renal Ultrasound. Clinical Indication: Elevated creatinine. Comparison: CT scan of the abdomen and pelvis 10/23/2018. TECHNIQUE: Multiple longitudinal and transverse real time sonographic images of the kidneys and urinary bladder are obtained. FINDINGS: KIDNEYS: The right kidney measures 12.4 cm. The left kidney measures 11.4 cm. The kidneys are normal in size, shape, contour, and position. The cortices are normal in thickness and the corticomedullary differentiation is maintained. There is no hydronephrosis, nephrolithiasis, or abnormal perinephric collections. There is a partially exophytic 1.2 cm cyst in the midpole of the left kidney. BLADDER: The bladder is filled with anechoic urine. The prevoid volume of the bladder is 742 mL with a postvoid volume of 682 mL. The visualized portions of the abdominal aorta, IVC and proximal common iliac arteries are within normal limits. IMPRESSION: 1. Left renal cyst. 2. Bladder post void residual. SL: [id number]-H at 7754 Reported and signed by: Arcadio Caban M.D. PAGE 1 Signed Report (CONTINUED) Name: MAXWELL HICKS JR [facility] : 1960 Age/S: 58 / M [address] [place] [address] Unit #: [id number] Loc: [place] [address] Phys: Pierre Patel MD Acct: [id number] Dis Date: Status: ADM IN PHONE #: [phone] Exam Date: 10/30/2018 1613 FAX #: [phone] Reason: eleavted creat EXAMS: CPT CODE: [id number] [facility] [address] <Continued> CC: Pierre Patel MD; Candice Lopez MD Technologist: Dayami Landeros RDMS(AB)(OB) Trnscb Date/Time: 10/30/2018 (1653) t.TDO Orig Print D/T: S: 10/30/2018 (1656) Probe: PAGE 2 Signed Report [id number] 16:41:00* Test Item Value Reference Range Interpretation Comments GLUBED (test code = GLUBED) 286 MG/DL 70-110 H Performed by certified petroleum refining equipment operator at [facility] [id number] 16:04:00* Test Item Value Reference Range Interpretation Comments GLUBED (test code = GLUBED) 283 MG/DL 70-110 H Performed by certified petroleum refining equipment operator at [facility] [id number] 14:47:00* Test Item Value Reference Range Interpretation Comments GLUBED (test code = GLUBED) 213 MG/DL 70-110 H Performed by certified petroleum refining equipment operator at [facility] [id number] 13:56:00* Test Item Value Reference Range Interpretation Comments GLUBED (test code = GLUBED) 260 MG/DL 70-110 H Performed by certified petroleum refining equipment operator at [facility] [id number] 12:36:00* Test Item Value Reference Range Interpretation Comments GLUBED (test code = GLUBED) 250 MG/DL 70-110 H Performed by certified petroleum refining equipment operator at [facility] - CT HEAD/BRAIN W/O [id number] 11:59:00 Name: HICKS,MAXWELL JR [facility] : 1960 Age/S: 58 / M [address] [place] [address] Unit #: [id number] Loc: [place] [address] Phys: Lake Mak MD Acct: [id number] Dis Date: Status: ADM IN PHONE #: [phone] Exam Date: 10/30/2018 1125 FAX #: [phone] Reason: altered mental status EXAMS: CPT CODE: [id number] CT HEAD/BRAIN W/O CONT 68656 PROCEDURE: CT HEAD WITHOUT CONTRAST INDICATION: Altered mental status COMPARISON: None. TECHNIQUE: Noncontrast helical imaging performed skull base to the vertex. Multiplanar reformations are obtained. CT imaging performed at this location utilizes radiation dose optimization techniques which include one or more of the following: -Automated exposure control -Adjustment of the mA and/or kV according to patient size -Use of iterative reconstruction technique CT Radiation Dose DLP 419.70 mGy-cm FINDINGS: BRAIN PARENCHYMA: There are normal alvarado-white interfaces, sulci and gyri. Small lacunar infarct in the right lentiform nucleus. No intra-axial or extra-axial hemorrhage, mass lesion or mass effect. The midline structures and posterior fossa contents are unremarkable. VENTRICLES: The ventricular system is normal. The basilar cisterns are normal. ORBITS, MASTOIDS AND PARANASAL SINUSES: The visualized orbits and paranasal sinuses are unremarkable. The mastoid air cells are clear. SKULL: The calvarium is intact. IMPRESSION: No acute intracranial abnormality. SL: [id number] at 1159 Reported and signed by: Augustine Fox M.D. PAGE 1 Signed Report (CONTINUED) Name: MAXWELL HICKS JR [facility] : Age/S: 58 / M [address] [place] [address] Unit #: [id number] Loc: [place] [address] Phys: Lake Mak MD Acct: [id number] Dis Ney e: Status: ADM IN PHONE #: Exam Date: 10/30/2018 1125 FAX #: [phone] Reason: altered mental status EXAMS: CPT CODE: [id number] CT HEAD/BRAIN W/O CONT 99594 <Continued> CC: Candice Lopez MD; Lake Mak MD Technologist:Rita Ulloa RT(R)(CT) CTDI: DLP: Trnscb Date/Time: 10/30/2018 (3655) tNIECY Orig Print D/T: S: 10/30/2018 (3431) PAGE 2 Signed Report - PULM VENT PERF [id number] 11:30:00 FAX: Candice Lopez MD [phone] [place]: St: ADM FAX: Diane Das DO Name: MAXWELL HICKS JR [facility] : 1960 Age/S: 58/M [address] [place] [address] Unit #: [id number] Loc: [address] [place] [address] Phys: Diane Das DO Acct: [id number] Dis Date: Status: ADM IN PHONE #: [phone] Exam Date: 10/30/2018 1125 FAX #: [phone] Reason: r/o PE EXAMS: CPT CODE: [id number] PULM VENT PERF IMAG 88630 NUCLEAR MEDICINE VENTILATION/PERFUSION LUNG SCAN H ISTORY: Hypertension, back pain, dehydration. Comparison is made t o 10/30/18 chest x-ray. Radiopharmaceutical: 10 mCi xenon-133 gas inhaled for ventilation, 5 mCi technetium 99m MAA injected IV for perfusio n. FINDINGS: Ventilation images show homogeneous act ivity at equilibrium. There is no significant air trapping on washout cedric tilation images identified. Perfusion images show patchy perihilar distribution of the radiopharmaceutical. There is no segmental perfusion defect. IMPRESSION: Normal exam. SL:01 at 1130 Reported and signed by: Augustine Fox M.D. CC: Candice Lopez MD; Diane Das DO Technologist: PORTILLO Marcelo (N) Trnscrd Date/Time/By: 10/30/2018 (1000) : By: Korey Orig Print D/T: S: 10/30/2018 (6234) PAGE 1 Signed Report GLUBED 2018-10-30 10:34:00* Test Item Value Reference Range Interpretation Comments GLUBED (test code = GLUBED) 336 MG/DL 70-110 H Performed by certified petroleum refining equipment operator at [facility] [id number] 10:33:00* Test Item Value Reference Range Interpretation Comments GLUBED (test code = GLUBED) 181 MG/DL 70-110 H Performed by certified petroleum refining equipment operator at [facility] PROCALCITONIN (PCT)2018-10-30 09:34:00* Test Item Value Reference Range Interpretation Comments PROCALCITONIN (PCT) (test code = PROCAL) 3.93 ng/mL 0.00-0.05 H PROCALCITONIN (PCT) NORMAL RANGE (ADULT): <0.05 NG/ML. * a concentration <0.5 ng/mL represents a low risk of severe sepsis and/or septic shock.* a concentration >2 ng/mL represents a high risk of severe sepsis and/or septic shock.Nevertheless, concentrations <0.5 ng/mL do not exclude aninfection, on account of localized infections (withoutsystemic signs) which can be associated with such lowconcentrations, or a systemic infection in its initialstages (< 6 hours). Furthermore, increased procalcitonincan occur without infection. PCT concentrations between 0.5and 2.0 ng/mL should be interpreted taking into account thepatient's history. It is recommended to retest PCT within6-24 hours if any concentrations <2 ng/mL are obtained. [id number] 09:07:00* Test Item Value Reference Range Interpretation Comments GLUBED (test code = GLUBED) 297 MG/DL 70-110 H Performed by certified petroleum refining equipment operator at [facility] URINALYSIS [id number] 07:28:00* Test Item Value Reference Range Interpretation Comments UA COLOR (test code = COLU) YELLOW YEL/STRAW UA APPEARANCE (test code = APPU) CLEAR CLEAR UA GLUCOSE DIPSTICK (test code = DGLUU) 2+ NEGATIVE A UA BILIRUBIN DIPSTICK (test code = BILU) NEGATIVE NEGATIVE UA KETONE DIPSTICK (test code = KETU) NEGATIVE NEGATIVE UA SPECIFIC GRAVITY (test code = SGU) 1.010 1.005-1.030 N UA BLOOD DIPSTICK (test code = JACKY) NEGATIVE NEGATIVE UA PH DIPSTICK (test code = LIZZETTE) 5.0 5.0-7.0 N UA PROTEIN DIPSTICK (test code = PROU) 2+ NEGATIVE A UA UROBILINIOGEN DIPSTICK (test code = URO) 0.2 mg/dL 0.2-1.0 UA NITRITE DIPSTICK (test code = ISABEL) NEGATIVE NEGATIVE UA LEUKOCYTE ESTERASE DIPSTICK (test code = LEUU) NEGATIVE NEGA TIVE UA WBC (test code = WBCU) 0-3 WBC/HPF 0-3 UA RBC (test code = RBCU) 0-3 RBC/HPF 0-3 UA BACTERIA (test code = BACU) TRACE /HPF NONE SEEN UA SQUAMOUS CELLS (test code = SQU) 0-5 /HPF NONE SEEN UA CULT [id number] 07:28:00* Test Item Value Reference Range Interpretation Comments UA CULTURE NEEDED? (test code = UACULT) NO, WBC<10 Criteria Culture Chk Criteria not met, Urine Culture cancelled. DRUGS OF ABUSE SCREEN [id number] 07:26:00* Test Item Value Reference Range Interpretation Comments URN COCAINE (test code = COCAURN) NEGATIVE NEGATIVE URN CANNABINOIDS (test code = CANNABURN) NEGATIVE NEGATIVE URN AMPHETAMINE (test code = AMPHETURN) NEGATIVE NEGATIVE URN BARBITURATE (test code = BARBITURN) NEGATIVE NEGATIVE URN BENZODIAZEPINE (test code = BENZOURN) NEGATIVE NEGATIVE Cut-off value:200 ng/mL URN OPIATES (test code = OPIATURN) NEGATIVE NEGATIVE Cut-off value:2000 ng/mL URN PHENCYCLIDINE (PCP) (test code = PHENCURN) NEGATIVE NEGATIV E Cutoffs:Barbiturates 200 ng/mLBenzodiazepines 200 ng/mLTHC Cannabinoids 50 ng/mLOpiates(Morphine) 2000 ng/mLAmphetamine 1000 ng/mLCocaine 300 ng/mLPCP phencyclidine 25 ng/mL Unconfirmed screening results shouldnot be used for non-medical purposes. LACTIC ACID [id number] 06:50:00* Test Item Value Reference Range Interpretation Comments LACTIC ACID REPEAT (test code = LACTR) 1.2 mmol/l 0.4-1.9 N [id number] 05:32:00* Test Item Value Reference Range Interpretation Comments GLUBED (test code = GLUBED) 306 MG/DL 70-110 H Performed by certified petroleum refining equipment operator at [facility] ARTERIAL BLOOD [id number] 03:51:00* Test Item Value Reference Range Interpretation Comments ARTERIAL BLOOD GAS PH (test code = PHA) 7.319 7.35-7.45 L ARTERIAL BLOOD GAS PCO2 (test code = PCO2A) 32.4 mmHg 35-45 L ARTERIAL BLOOD GAS PO2 (test code = PO2A) 51 mmHg 80-100 L BICARBONATE TOTAL HCO3 (test code = HCO3) 16.8 mmol/L 22.0-26.0 L BASE EXCESS (test code = ANSON) -9.0 mmol/L -4-4 L ABG O2 SATURATION (test code = SATA) 85 % 90-100 L ABG DELIVERY (test code = ARNULFO) Cannula ABG TEMPERATURE (test code = TEMPA) 97.7 F ABG SITE (test code = SITEA) L Rad TCO2 ARTERIAL (test code = TCO2A) 18 - XR CHEST 1 [id number] 03:50:00 FAX: Candice Lopez MD [phone] [place]: GC St: ADM FAX: Diane Das DO Name: MAXWELL HICKS JR [facility] : 1960 Age/S: 58/M [address] [place] [address] Blvd Unit #: [id number] Loc: [place] [address] Phys: Diane Das DO Acct: [id number] Dis Date: Status: ADM IN PHONE #: [phone] Exam Date: 10/30/2018344 FAX #: [phone] 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 COMPARISON: 10/23/2018 FINDINGS: Trachea is midline. Heart is normal in size. Pulmonary vascularity is unremarkable. There is no airspace consolidation, pleural effusion or pneumothorax. No significant osseous abnormalities are seen. IMPRESSION: No acute cardiopulmonary disease seen. SL: [JSYED-H] at 0350 Reported and signed by: Sd Sainz M.D. CC: Candice Lopez MD; Diane Das DO Technologist: RT Julien(R) Trnscrd Date/Time/By: 10/30/2018 (0350) : By: [email or web address] Orig Print D/T: S: 10/30/2018 (6597) PAGE 1 Signed Report [id number] 03:45:00* Test Item Value Reference Range Interpretation Comments AMMONIA (test code = AMM) < 10 umol/L 0-35 N [id number] 03:41:00* Test Item Value Reference Range Interpretation Comments GLUBED (test code = GLUBED) 250 MG/DL 70-110 H Performed by certified petroleum refining equipment operator at [facility] PROTHROMBIN [id number] 03:36:00* Test Item Value Reference Range Interpretation Comments PROTHROMBIN TIME PATIENT (test code = PTP) 11.8 SECONDS 9.3-12.9 N INTERNATIONAL NORMAL RATIO (test code = INR) 1.0 0.8-1.2 N TARGET INR BY INDICATION Indication INR1. Prophylaxis of venous thrombosis 2.0 - 3.0 (orthopedic surgery), Prophylaxis of venous thrombosis (other than high-risk surgery), Treatment of Deep Vein Thrombosis/Pulmonary Embolism, Prevention of systemic embolism - Tissue heart valves, Acute Myocardial Infarction (to prevent systemic embolism), Valvular heart disease, Atrial Fibrillation, Bileaflet mechanical valve in aortic position.2. Mechanical prosthetic valves (high risk), 2.5 - 3.5 Presence of Lupus Anticoagulant or Antiphospholipid Antibodies, Prevention of systemic embolism - Acute Myocardial Infarction (to prevent recurrent infarct). THROMBOPLASTIN TIME [id number] 03:36:00* Test Item Value Reference Range Interpretation Comments THROMBOPLASTIN TIME PARTIAL (test code = PTT) 32.8 Seconds 25.0-39. 5 N Therapeutic Range: 50.4 - 88.3 Seconds Effective 09/20/2018 LACTIC [id number] 03:33:00* Test Item Value Reference Range Interpretation Comments LACTIC ACID (test code = LACT) 5.9 mmol/L 0.4-1.9 BASIC METABOLIC [id number] 03:28:00* Test Item Value Reference Range Interpretation Comments SODIUM (test code = NA) 131 mEq/L 134-147 L POTASSIUM (test code = K) 4.3 mEq/L 3.4-5.0 N CHLORIDE (test code = CL) 98 mEq/L 100-108 L CARBON DIOXIDE (test code = CO2) 21 mEq/L 21-33 ANION GAP (test code = GAP) 16 0-20 N GLUCOSE (test code = GLU) 282 mg/dL 70-110 H BLOOD UREA NITROGEN (test code = BUN) 70 mg/dL 7-18 H GLOMERULAR FILTRATION RATE (test code = GFR) 23.5 90-95 L Units of measure = ml/min/1.73 m2 CREATININE (test code = CREAT) 2.8 mg/dL 0.6-1.3 H CALCIUM (test code = CA) 7.8 mg/dL 8.0-10.5 L [id number] 03:28:00* Test Item Value Reference Range Interpretation Comments PHOSPHOROUS (test code = PHOS) 4.4 mg/dL 2.5-4.9 [id number] 03:28:00* Test Item Value Reference Range Interpretation Comments MAGNESIUM (test code = MAG) 2.50 mg/dL 1.8-2.4 H CBC W/AUTO [id number] 03:15:00* Test Item Value Reference Range Interpretation Comments WHITE BLOOD CELL (test code = WBC) 11.33 x10 3/uL 4.5-11.0 H RED BLOOD CELL (test code = RBC) 4.28 x10 6/uL 4.00-5.60 N HEMOGLOBIN (test code = HGB) 12.8 g/dL 12.5-16.9 N HEMATOCRIT (test code = HCT) 37.9 % 37.5-50.7 N MEAN CELL VOLUME (test code = MCV) 88.6 fL 81.0-99.0 N MEAN CELL HGB (test code = MCH) 29.9 pg 27.0-33.0 N MEAN CELL HGB CONCETRATION (test code = MCHC) 33.8 g/dL 33.0-37. 0 N RED CELL DISTRIBUTION WIDTH CV (test code = RDW) 13.0 % 11.5- 14.5 N RED CELL DISTRIBUTION WIDTH SD (test code = RDW-SD) 42.3 fL 37 .0-54.0 N PLATELET COUNT (test code = PLT) 312 x10 3/uL 150-400 N MEAN PLATELET VOLUME (test code = MPV) 8.8 fL 7.0-9.0 N NEUTROPHIL % (test code = NT%) 87.5 % 56.0-77.0 H IMMATURE GRANULOCYTE % (test code = IG%) 1.3 % 0.0-2.0 N LYMPHOCYTE % (test code = LY%) 4.9 % 14.0-32.0 L MONOCYTE % (test code = MO%) 6.2 % 4.8-9.0 N EOSINOPHIL % (test code = EO%) 0.0 % 0.3-3.7 L BASOPHIL % (test code = BA%) 0.1 % 0.0-2.0 N NUCLEATED RBC % (test code = NRBC%) 0.0 % 0-0 N NEUTROPHIL # (test code = NT#) 9.92 x10 3/uL 2.0-7.6 H IMMATURE GRANULOCYTE # (test code = IG#) 0.15 x10 3/uL 0.00-0.03 H LYMPHOCYTE # (test code = LY#) 0.55 x10 3/uL 1.0-3.8 L MONOCYTE # (test code = MO#) 0.70 x10 3/uL 0.1-0.8 N EOSINOPHIL # (test code = EO#) 0.00 x10 3/uL 0.0-0.2 N BASOPHIL # (test code = BA#) 0.01 x10 3/uL 0.0-0.2 N NUCLEATED RBC # (test code = NRBC#) 0.00 x10 3/uL 0.0-0.1 N MANUAL DIFF REQUIRED (test code = MDIFF) NO [id number] 21:37:00* Test Item Value Reference Range Interpretation Comments GLUBED (test code = GLUBED) 309 MG/DL 70-110 H Performed by certified petroleum refining equipment operator at [facility] PROCALCITONIN (PCT)2018-10-29 18:19:00* Test Item Value Reference Range Interpretation Comments PROCALCITONIN (PCT) (test code = PROCAL) 5.24 ng/mL 0.00-0.05 H PROCALCITONIN (PCT) NORMAL RANGE (ADULT): <0.05 NG/ML. * a concentration <0.5 ng/mL represents a low risk of severe sepsis and/or septic shock.* a concentration >2 ng/mL represents a high risk of severe sepsis and/or septic shock.Nevertheless, concentrations <0.5 ng/mL do not exclude aninfection, on account of localized infections (withoutsystemic signs) which can be associated with such lowconcentrations, or a systemic infection in its initialstages (< 6 hours). Furthermore, increased procalcitonincan occur without infection. PCT concentrations between 0.5and 2.0 ng/mL should be interpreted taking into account thepatient's history. It is recommended to retest PCT within6-24 hours if any concentrations <2 ng/mL are obtained. [id number] 16:46:00* Test Item Value Reference Range Interpretation Comments GLUBED (test code = GLUBED) 302 MG/DL 70-110 H Performed by certified petroleum refining equipment operator at [facility] [id number] 11:08:00* Test Item Value Reference Range Interpretation Comments GLUBED (test code = GLUBED) 244 MG/DL 70-110 H Performed by certified petroleum refining equipment operator at [facility] BASIC METABOLIC [id number] 08:50:00* Test Item Value Reference Range Interpretation Comments SODIUM (test code = NA) 127 mEq/L 134-147 L POTASSIUM (test code = K) 4.1 mEq/L 3.4-5.0 N CHLORIDE (test code = CL) 99 mEq/L 100-108 L CARBON DIOXIDE (test code = CO2) 14 mEq/L 21-33 L ANION GAP (test code = GAP) 18 0-20 N GLUCOSE (test code = GLU) 315 mg/dL 70-110 H BLOOD UREA NITROGEN (test code = BUN) 60 mg/dL 7-18 H GLOMERULAR FILTRATION RATE (test code = GFR) 21.7 90-95 L Units of measure = ml/min/1.73 m2 CREATININE (test code = CREAT) 3.0 mg/dL 0.6-1.3 H CALCIUM (test code = CA) 7.7 mg/dL 8.0-10.5 L [id number] 08:50:00* Test Item Value Reference Range Interpretation Comments PHOSPHOROUS (test code = PHOS) 3.3 mg/dL 2.5-4.9 N URIC [id number] 08:50:00* Test Item Value Reference Range Interpretation Comments URIC ACID (test code = URIC) 10.0 mg/dL 2.6-7.2 H [id number] 08:50:00* Test Item Value Reference Range Interpretation Comments MAGNESIUM (test code = MAG) 2.10 mg/dL 1.8-2.4 N C REACTIVE [id number] 08:48:00* Test Item Value Reference Range Interpretation Comments C REACTIVE PROTEIN (test code = CRP) 221.0 MG/L 0.0-2.9 H SED RATE [id number] 07:06:00* Test Item Value Reference Range Interpretation Comments SED RATE WESTERGREN (test code = SEDW) 107 mm/hr 0-15 H CBC W/AUTO [id number] 07:00:00* Test Item Value Reference Range Interpretation Comments WHITE BLOOD CELL (test code = WBC) 12.10 x10 3/uL 4.5-11.0 H RED BLOOD CELL (test code = RBC) 3.88 x10 6/uL 4.00-5.60 L HEMOGLOBIN (test code = HGB) 11.7 g/dL 12.5-16.9 L HEMATOCRIT (test code = HCT) 34.2 % 37.5-50.7 L MEAN CELL VOLUME (test code = MCV) 88.1 fL 81.0-99.0 MEAN CELL HGB (test code = MCH) 30.2 pg 27.0-33.0 N MEAN CELL HGB CONCETRATION (test code = MCHC) 34.2 g/dL 33.0-37. 0 N RED CELL DISTRIBUTION WIDTH CV (test code = RDW) 13.1 % 11.5- 14.5 N RED CELL DISTRIBUTION WIDTH SD (test code = RDW-SD) 42.5 fL 37 .0-54.0 N PLATELET COUNT (test code = PLT) 246 x10 3/uL 150-400 N MEAN PLATELET VOLUME (test code = MPV) 9.8 fL 7.0-9.0 H NEUTROPHIL % (test code = NT%) 89.0 % 56.0-77.0 H IMMATURE GRANULOCYTE % (test code = IG%) 1.2 % 0.0-2.0 N LYMPHOCYTE % (test code = LY%) 3.7 % 14.0-32.0 L MONOCYTE % (test code = MO%) 6.0 % 4.8-9.0 N EOSINOPHIL % (test code = EO%) 0.0 % 0.3-3.7 L BASOPHIL % (test code = BA%) 0.1 % 0.0-2.0 N NUCLEATED RBC % (test code = NRBC%) 0.0 % 0-0 N NEUTROPHIL # (test code = NT#) 10.76 x10 3/uL 2.0-7.6 H IMMATURE GRANULOCYTE # (test code = IG#) 0.15 x10 3/uL 0.00-0.03 H LYMPHOCYTE # (test code = LY#) 0.45 x10 3/uL 1.0-3.8 L MONOCYTE # (test code = MO#) 0.73 x10 3/uL 0.1-0.8 N EOSINOPHIL # (test code = EO#) 0.00 x10 3/uL 0.0-0.2 N BASOPHIL # (test code = BA#) 0.01 x10 3/uL 0.0-0.2 N NUCLEATED RBC # (test code = NRBC#) 0.00 x10 3/uL 0.0-0.1 N MANUAL DIFF REQUIRED (test code = MDIFF) NO [id number] 23:24:00* Test Item Value Reference Range Interpretation Comments GLUBED (test code = GLUBED) 332 MG/DL 70-110 H Performed by certified petroleum refining equipment operator at [facility] SYNOVIAL FLD CELL [id number] 16:33:00* Test Item Value Reference Range Interpretation Comments SYNOVIAL FLD COLOR (test code = COLSY) YELLOW SYNOVIAL FLD APPEARANCE (test code = APPSY) HAZY SYNOVIAL FLD WBC (test code = WBCSY) 26541 /mm3 0-200 H SYNOVIAL FLD RBC (test code = RBCSY) 26169.000 Cells/uL 0-0 H SYNOVIAL FLD POLY (test code = POLYSY) 96 % SYNOVIAL FLD LYMPHOCYTE (test code = LYMPHSY) 3 % SYNOVIAL FLD MONOCYTE (test code = MONOSY) 1 % COMMENTS: right [id number] 16:21:00* Test Item Value Reference Range Interpretation Comments GLUBED (test code = GLUBED) 307 MG/DL 70-110 H Performed by certified petroleum refining equipment operator at [facility] SYNOVIAL FLD CELL CT/[id number] 15:26:00* Test Item Value Reference Range Interpretation Comments SYNOVIAL FLD COLOR (test code = COLSY) YELLOW SYNOVIAL FLD APPEARANCE (test code = APPSY) HAZY SYNOVIAL FLD WBC (test code = WBCSY) 55100 /mm3 0-200 H SYNOVIAL FLD RBC (test code = RBCSY) 61632.000 Cells/uL 0-0 H SYNOVIAL FLD POLY (test code = POLYSY) % COMMENTS: right kneeSYNOVIAL FLD CELL CT/[id number] 15:17:00* Test Item Value Reference Range Interpretation Comments SYNOVIAL FLD COLOR (test code = COLSY) YELLOW SYNOVIAL FLD APPEARANCE (test code = APPSY) HAZY SYNOVIAL FLD WBC (test code = WBCSY) /mm3 0-200 SYNOVIAL FLD RBC (test code = RBCSY) 81002.000 Cells/uL 0-0 H SYNOVIAL FLD POLY (test code = POLYSY) % COMMENTS: right kneeSYNOVIAL FLD CELL CT/[id number] 15:16:00* Test Item Value Reference Range Interpretation Comments SYNOVIAL FLD COLOR (test code = COLSY) SYNOVIAL FLD APPEARANCE (test code = APPSY) SYNOVIAL FLD WBC (test code = WBCSY) /mm3 0-200 SYNOVIAL FLD RBC (test code = RBCSY) 09805.000 Cells/uL 0-0 H SYNOVIAL FLD POLY (test code = POLYSY) % COMMENTS: right kneeSED RATE [id number] 09:20:00* Test Item Value Reference Range Interpretation Comments SED RATE WESTERGREN (test code = SEDW) 96 mm/hr 0-15 H C REACTIVE [id number] 08:06:00* Test Item Value Reference Range Interpretation Comments C REACTIVE PROTEIN (test code = CRP) 252.0 MG/L 0.0-2.9 H BASIC METABOLIC [id number] 08:01:00* Test Item Value Reference Range Interpretation Comments SODIUM (test code = NA) 132 mEq/L 134-147 L POTASSIUM (test code = K) 3.9 mEq/L 3.4-5.0 N CHLORIDE (test code = CL) 104 mEq/L 100-108 N CARBON DIOXIDE (test code = CO2) 17 mEq/L 21-33 L ANION GAP (test code = GAP) 15 0-20 N GLUCOSE (test code = GLU) 122 mg/dL 70-110 H BLOOD UREA NITROGEN (test code = BUN) 48 mg/dL 7-18 H GLOMERULAR FILTRATION RATE (test code = GFR) 23.5 90-95 L Units of measure = ml/min/1.73 m2 CREATININE (test code = CREAT) 2.8 mg/dL 0.6-1.3 H CALCIUM (test code = CA) 7.6 mg/dL 8.0-10.5 L [id number] 08:01:00* Test Item Value Reference Range Interpretation Comments PHOSPHOROUS (test code = PHOS) 3.3 mg/dL 2.5-4.9 N [id number] 08:01:00* Test Item Value Reference Range Interpretation Comments MAGNESIUM (test code = MAG) 1.90 mg/dL 1.8-2.4 N [id number] 07:37:00* Test Item Value Reference Range Interpretation Comments GLUBED (test code = GLUBED) 144 MG/DL 70-110 H Performed by certified petroleum refining equipment operator at [facility] CBC W/AUTO [id number] 07:18:00* Test Item Value Reference Range Interpretation Comments WHITE BLOOD CELL (test code = WBC) 10.21 x10 3/uL 4.5-11.0 N RED BLOOD CELL (test code = RBC) 3.96 x10 6/uL 4.00-5.60 L HEMOGLOBIN (test code = HGB) 11.9 g/dL 12.5-16.9 L HEMATOCRIT (test code = HCT) 36.1 % 37.5-50.7 L MEAN CELL VOLUME (test code = MCV) 91.2 fL 81.0-99.0 N MEAN CELL HGB (test code = MCH) 30.1 pg 27.0-33.0 N MEAN CELL HGB CONCETRATION (test code = MCHC) 33.0 g/dL 33.0-37. 0 N RED CELL DISTRIBUTION WIDTH CV (test code = RDW) 13.8 % 11.5- 14.5 N RED CELL DISTRIBUTION WIDTH SD (test code = RDW-SD) 46.4 fL 37 .0-54.0 N PLATELET COUNT (test code = PLT) 209 x10 3/uL 150-400 N MEAN PLATELET VOLUME (test code = MPV) 9.7 fL 7.0-9.0 H NEUTROPHIL % (test code = NT%) 73.1 % 56.0-77.0 N IMMATURE GRANULOCYTE % (test code = IG%) 0.5 % 0.0-2.0 N LYMPHOCYTE % (test code = LY%) 10.5 % 14.0-32.0 L MONOCYTE % (test code = MO%) 13.1 % 4.8-9.0 H EOSINOPHIL % (test code = EO%) 2.3 % 0.3-3.7 N BASOPHIL % (test code = BA%) 0.5 % 0.0-2.0 N NUCLEATED RBC % (test code = NRBC%) 0.0 % 0-0 N NEUTROPHIL # (test code = NT#) 7.47 x10 3/uL 2.0-7.6 N IMMATURE GRANULOCYTE # (test code = IG#) 0.05 x10 3/uL 0.00-0.03 H LYMPHOCYTE # (test code = LY#) 1.07 x10 3/uL 1.0-3.8 N MONOCYTE # (test code = MO#) 1.34 x10 3/uL 0.1-0.8 H EOSINOPHIL # (test code = EO#) 0.23 x10 3/uL 0.0-0.2 H BASOPHIL # (test code = BA#) 0.05 x10 3/uL 0.0-0.2 N NUCLEATED RBC # (test code = NRBC#) 0.00 x10 3/uL 0.0-0.1 N MANUAL DIFF REQUIRED (test code = MDIFF) NO [id number] 22:00:00* Test Item Value Reference Range Interpretation Comments GLUBED (test code = GLUBED) 139 MG/DL 70-110 H Performed by certified petroleum refining equipment operator at [facility] [id number] 16:17:00* Test Item Value Reference Range Interpretation Comments GLUBED (test code = GLUBED) 116 MG/DL 70-110 H Performed by certified petroleum refining equipment operator at [facility] SED RATE [id number] 12:35:00* Test Item Value Reference Range Interpretation Comments SED RATE WESTERGREN (test code = SEDW) 93 mm/hr 0-15 H C REACTIVE [id number] 11:59:00* Test Item Value Reference Range Interpretation Comments C REACTIVE PROTEIN (test code = CRP) 217.0 MG/L 0.0-2.9 H [id number] 11:31:00* Test Item Value Reference Range Interpretation Comments GLUBED (test code = GLUBED) 202 MG/DL 70-110 H Performed by certified petroleum refining equipment operator at [facility] [id number] 07:40:00* Test Item Value Reference Range Interpretation Comments GLUBED (test code = GLUBED) 174 MG/DL 70-110 H Performed by certified petroleum refining equipment operator at [facility] BASIC METABOLIC [id number] 07:37:00* Test Item Value Reference Range Interpretation Comments SODIUM (test code = NA) 135 mEq/L 134-147 N POTASSIUM (test code = K) 3.8 mEq/L 3.4-5.0 N CHLORIDE (test code = CL) 105 mEq/L 100-108 N CARBON DIOXIDE (test code = CO2) 21 mEq/L 21-33 N ANION GAP (test code = GAP) 13 0-20 N GLUCOSE (test code = GLU) 161 mg/dL 70-110 H BLOOD UREA NITROGEN (test code = BUN) 37 mg/dL 7-18 H GLOMERULAR FILTRATION RATE (test code = GFR) 28.0 90-95 L Units of measure = ml/min/1.73 m2 CREATININE (test code = CREAT) 2.4 mg/dL 0.6-1.3 H CALCIUM (test code = CA) 7.7 mg/dL 8.0-10.5 L [id number] 07:37:00* Test Item Value Reference Range Interpretation Comments PHOSPHOROUS (test code = PHOS) 2.8 mg/dL 2.5-4.9 N [id number] 07:37:00* Test Item Value Reference Range Interpretation Comments MAGNESIUM (test code = MAG) 1.80 mg/dL 1.8-2.4 N CBC W/AUTO [id number] 05:35:00* Test Item Value Reference Range Interpretation Comments WHITE BLOOD CELL (test code = WBC) 9.72 x10 3/uL 4.5-11.0 N RED BLOOD CELL (test code = RBC) 4.09 x10 6/uL 4.00-5.60 N HEMOGLOBIN (test code = HGB) 12.4 g/dL 12.5-16.9 L HEMATOCRIT (test code = HCT) 37.2 % 37.5-50.7 L MEAN CELL VOLUME (test code = MCV) 91.0 fL 81.0-99.0 N MEAN CELL HGB (test code = MCH) 30.3 pg 27.0-33.0 N MEAN CELL HGB CONCETRATION (test code = MCHC) 33.3 g/dL 33.0-37. 0 N RED CELL DISTRIBUTION WIDTH CV (test code = RDW) 14.1 % 11.5- 14.5 N RED CELL DISTRIBUTION WIDTH SD (test code = RDW-SD) 46.9 fL 37 .0-54.0 N PLATELET COUNT (test code = PLT) 172 x10 3/uL 150-400 N MEAN PLATELET VOLUME (test code = MPV) 9.2 fL 7.0-9.0 H NEUTROPHIL % (test code = NT%) 71.2 % 56.0-77.0 N IMMATURE GRANULOCYTE % (test code = IG%) 0.8 % 0.0-2.0 N LYMPHOCYTE % (test code = LY%) 13.4 % 14.0-32.0 L MONOCYTE % (test code = MO%) 13.0 % 4.8-9.0 H EOSINOPHIL % (test code = EO%) 1.3 % 0.3-3.7 N BASOPHIL % (test code = BA%) 0.3 % 0.0-2.0 N NUCLEATED RBC % (test code = NRBC%) 0.0 % 0-0 N NEUTROPHIL # (test code = NT#) 6.92 x10 3/uL 2.0-7.6 N IMMATURE GRANULOCYTE # (test code = IG#) 0.08 x10 3/uL 0.00-0.03 H LYMPHOCYTE # (test code = LY#) 1.30 x10 3/uL 1.0-3.8 N MONOCYTE # (test code = MO#) 1.26 x10 3/uL 0.1-0.8 H EOSINOPHIL # (test code = EO#) 0.13 x10 3/uL 0.0-0.2 N BASOPHIL # (test code = BA#) 0.03 x10 3/uL 0.0-0.2 N NUCLEATED RBC # (test code = NRBC#) 0.00 x10 3/uL 0.0-0.1 N MANUAL DIFF REQUIRED (test code = MDIFF) NO [id number] 21:31:00* Test Item Value Reference Range Interpretation Comments GLUBED (test code = GLUBED) 200 MG/DL 70-110 H Performed by certified petroleum refining equipment operator at [facility] - XR KNEE 1 OR 2 V [id number] 19:09:00 FAX: Candice Lopez MD [phone] [place]: St: FAX: Diane Das DO Name: MAXWELL HICKS JR [facility] : 1960 Age/S: 58/M [address] [place] [address] Unit #: [id number] Loc: [place] [address] Phys: Diane Das DO Acct: [id number] Dis Date: Status: ADM IN PHONE #: [phone] Exam Date: 10/26/2018 184 FAX #: [phone] Reason: Right knee pain EXAMS: CPT CODE: [id number] XR KNEE 1 OR 2 V RT [address]44 2 VIEWS RIGHT KNEE HISTORY: Right knee pain. COMPARISON: No priors available.. Mild chondrocal cinosis. Bones intact and joint space maintained. No joint effusion. Soft tissues normal with the exception of vascular calcifications. IMPRESSION: Mild chondrocalcinosis. Otherwise normal exam. END OF IMPRESSION WR1-H at 1909 Reported and signed by: James Peraza M.D. CC: Candice Lopez MD; Diane Das DO Technologist: PORTILLO Bo RT(R); Martin Shelton RT(R) Trnscrd Date/Time/By: 10/26/2018 (2 244) : By: Shira Orig Print D/T: S: 10/26/2018 (726) PAGE 1 Signed Report [id number] 17:24:00* Test Item Value Reference Range Interpretation Comments GLUBED (test code = GLUBED) 144 MG/DL 70-110 H Performed by certified petroleum refining equipment operator at [facility] - MRI L-SPINE W/O [id number] 13:45:00 FAX: Candice Lopez MD [phone] [place]: St: [facility] FAX: Diane Das DO Name: MAXWELL HICKS JR [facility] : 1960 Age/S: 58/M [address] [place] [address] Unit #: [id number] Loc: [place], [place] [address] Phys: Diane Das DO Acct: [id number] Dis Date: Status: ADM IN PHONE #: [phone] Exam Date: 10/26/2018 1059 FAX #: [phone] Reason: persistant back pain, ?radiculopahy EXAMS: CPT CODE: [id number] MRI L-SPINE W/O CONT 10204 Study: - MRI L-SPINE W/O CONT 10/26/2018 9:40 AM P atient Name: MAXWELL HICKS JR MR: [id number] : 1960; Age: 58 years y/o Male Ordering Physician: Diane Das DO Clinical Ind ication: Persistent lumbar pain and right radiculopathy. Compariso n: None TECHNIQUE: Multiplanar T1, T2, and STIR weighted noncontra st MRI of the lumbar spine was performed on the 1.5 Shaniqua magnet. FINDINGS: ALIGNMENT AND GENERAL ASSESSMENT: Five lumbar type vertebral bodies are assumed for purpose of this dictation with conus medullaris termination at L1. Mild to moderat e lumbar spondylosis and facet arthrosis greatest in the mid and lower lum bar spine. Multilevel narrowed, desiccated, and bulging intervertebral di scs are seen associated with endplate degenerative change and small margin al osteophyte formation. No acute fracture, dislocation, or suspi cious focal osseous lesion is appreciated. Normal paraspinal soft tissues. DISC SPACES: T12-L1: No signi ficant disc protrusion, spinal canal narrowing, or neural foraminal narrow ing. L1-L2: Mild diffuse disc bulge coupled with moderate facet ar throsis causing mild anterior thecal sac compression without spinal canal narrowing. No significant neural foraminal narrowing. L2-L3: Mild to moderate diffuse disc bulge coupled with moderate facet arthrosis and small posteriorly projecting osteophytes causing ojqt-yh-ahbjvumd sp inal canal narrowing and mild bilateral neural PAGE 1 Signed Report (CONTINUED) FAX: Lopez,Raka MD [phone] [place]: St: ADM FAX: Diane Das DO ----- Name: MAXWELL HICKS JR [facility] : 1960 Age/S: 58/M [address] [place] [address] Unit #: [id number] Loc: [address] [address] Phys: Diane Das DO Acct: [id number] Dis Date: Status: ADM IN PHONE #: [phone] Exam Date: 10/26/2018 1059 FAX #: [phone] Reason: persistant back pain, ?radiculopahy EXAM S: CPT CODE: [id number] MRI L- SPINE W/O CONT 31171 <Continued> foraminal narrowing. L3-L4: Moderate diffuse disc bulge coupled with moderate facet arthrosis and small posteriorly projecting osteophytes causing severe spinal canal narrowing with crowding of the nerve roots centrally in the thecal sac. Severe right neural foraminal narrowing and moderate to severe neural foraminal narrowing are also present at this level. L4-L5: Mild to moderate diffuse disc bulge coupled with mo derate facet arthrosis causing mild to moderate spinal canal narrowing, mo derate to severe left neural foraminal narrowing, and severe right neural foraminal narrowing L5-S1: Mild diffuse disc bulge coupled w ith moderate to severe facet arthrosis causing mild spinal canal narrowing and associated with severe bilateral neural foraminal narrowing. IMPRESSION: Mild to moderate lumbar spondylosis and facet arthrosis associated with multilevel disc bulges greatest in the mid and lower lumbar spine. Moderate diffuse disc bulge at L3-L4 associated with moderate facet arthrosis and small poste riorly projecting osteophytes causing severe spinal canal narrowing, sev ere right neural foraminal narrowing, and moderate to severe left neural foraminal narrowing. Mild to moderate diffuse disc bulge at L 4-L5 coupled with moderate facet arthrosis causing mild to moderate spin al canal narrowing, moderate to severe left neural foraminal narrowing, and severe right neural foraminal narrowing. Mild diff use disc bulge at L5-S1 coupled with moderate to severe facet arthrosis causing mild spinal canal narrowing and severe bilateral neural foramina l narrowing. Mild to moderate diffuse disc bulge at L2-L3 coup led with moderate facet arthrosis causing mild to moderate spinal canal narrowing and mild bilateral neural foraminal narrowing. PAGE 2 Signed Report (CONTINU ED) FAX: Candice Lopez MD [phone] [place]: St: ADM FAX: Diane Das DO Name: MAXWELL HICKS JR [facility] : 1960 Age/S: 58/M [address] [place] [address] Unit #: [id number] Loc: [address] [place] [address] Phys: Diane Das DO Acct: [id number] Dis Date: Status: ADM IN PHONE #: [phone] Exam Date: 019 1059 FAX #: [phone] Reason: persistant back p ain, ?radiculopahy EXAMS: CPT CODE: [id number] MRI L-SPINE W/O CONT 52890 <Continued> SL: [id number] at 1343 Reported and signed by: Desmond Sorensen M.D. CC: Candice Lopez MD; Diane Das DO Technologist: RT Aden(Sayda)(CT)(MR) Trnscrd Date/Time/By: 10/26/2018 (4587) : By: [email or web address] Orig Print D/T: S: 10/26/2018 (1850) PAGE 3 Signed Report - MRI THORACIC SPINE WO [id number] 13:36:00 FAX: Candice Lopez MD [phone] [place]: St: ADM FAX: Diane Das DO Name: MAXWELL HICKS [facility] : 1960 Age/S: 58/M [address] [place] [address] Unit #: [id number] Loc: [place], [place] [address] Phys: Diane Das DO Acct: [id number] Dis Date: Status: ADM IN PHONE #: [phone] Exam Date: 10/26/2018 1059 FAX #: [phone] Reason: persistant back pain, ?radiculopahy EXAMS: CPT CODE: [id number] MRI THORACIC SPINE WO CON [id number] Patient Name: MAXWELL HICKS JR : 1960; Age: 58 years y/o Male MR: [id number] Study: - MRI THORACIC SPINE WO CON 10/26/2018 9:40 AM Ordering Physician: DO Lenora East linical Indication: Persistent back pain and right radiculopathy. Comparis on: None TECHNIQUE: Multiplanar T1, T2, and STIR weighted MRI of t he thoracic spine is performed. FINDINGS: ALI GNMENT AND GENERAL ASSESSMENT: Normal thoracic kyphosis associated with mi nimal scoliosis convexity toward the left. No acute fracture , dislocation, or suspicious focal osseous lesion. Mild to moderat e thoracic spondylosis greatest in the mid and lower thoracic spine manife st by multilevel narrowed, desiccated, and bulging intervertebral discs. The conus medullaris terminates at L1. The thoracic spinal cord signal is normal after accounting for mild artifact. Normal pa raspinal soft tissues. Small 8 mm T2 hyperintense right renal lesion cons istent with a hemorrhagic cyst. DISC SPACES: Scatter ed multilevel mild disc bulges and disc protrusions. Small focal c entral posterior disc protrusion at T5-T6 causing mild anterior thecal sac compression and mild anterior thoracic spinal cord flattening without sig nificant spinal canal narrowing or neural foraminal narrowing. Small central disc protrusion at T6-T7 causing mild anterior thecal sac compression and anterior thoracic spinal cord flattening without signal in spinal canal narrowing or neural foraminal narrowing. PAGE 1 Signed Report (CONTINUED) FAX: Candice Graham MD [phone] [place]: St: ADM FAX: Diane Das DO Name: MAXWELL HICKS JR [facility] : 1960 Age/S: 58/M [address] [place] [address] Unit #: [id number] Loc: [address] [address] Phys: Diane Das DO Acct: [id number] Dis Date: Status: ADM IN PHONE #: [phone] Exam Date: 10/26/2018 1059 FAX #: [phone] Reason: persistant back pain, ?radiculopahy EXAMS: CPT CODE: [id number] MRI THORACIC SPINE WO CON [id number] < Continued> Small diffuse disc bulge and central protrusion with inferior extrusion at T7-T8 causing mild anterior thecal sac compression and anterior thoracic spinal cord flattening without slipping spinal canal narrowing or neural foraminal narrowing. Mild diffuse disc bulge at T8-T9 with focal asymmetry in the left paracentral region causing mild anterior thecal sac compression without significant spinal canal narrowing or neural foraminal narrowing. Small to moderate sized left paracentral disc protrusion at T9-T10 causing mild anterior thecal sac compression and flattening of the anterior aspect of the thoracic spinal cord the left. No significant spinal canal narrowing or neural foraminal narrowing. Mild diffuse disc bulge at T10-T11 causing mild anterior thecal sac compression without significant spinal canal narrowing. Severe bilateral neural foraminal narrowing related to a combination of the disc bulge and facet arthrosis. Mild diffuse disc bulge at T11-T12 causing mild spinal canal narrowing. Severe bilateral neural foraminal narrowing related to a combination of the disc bulge and facet arthrosis. IMPRESSION: Mild to moderate thoracic spondylosis and facet arthrosis greatest in the mid and lower thoracic spine. Mild diffuse disc bulge at T11-T12 causing mild spinal canal narrowing and associated with severe bilateral neural foraminal narrowing. Mild diffuse disc bulge at T10-T11 causing mild anterior thecal sac compression and severe bilateral neural foraminal narrowing. Multilevel mild disc bulges and disc protrusions are otherwise present causing multilevel mild anterior thecal sac compression and anterior thoracic spinal cord flattening without significant spinal canal narrowing or neural foraminal narrowing. PAGE 2 Signed Report (CONTINUED) FAX: Candice Lopez MD [phone] [place]: St: ADM FAX: Diane Das DO Name: MAXWELL HICKS JR [facility] : 1960 Age/S: 58/M [address] [place] [address] Unit #: [id number] Loc: [address] [address] Phys: Diane Das DO Acct: [id number] Dis Date: Status: ADM IN PHONE #: [phone] Exam Date: 10/26/2018 1059 FAX #: [phone] Reason: persistant back pain, ?radiculopahy EXAMS: CPT CODE: [id number] MRI THORACIC SPINE WO CON 40545 < Continued> Subcentimeter T2 hyperintense right renal lesion consistent with a complex hemorrhagic cyst. SL: [id number] at 6762 Reported and signed by: Desmond Sorensen M.D. CC: Candice Lopez MD; Diane Das DO Technologist: Jose Pelayo RT(R)(CT)(MR) Trnscrd Date/Time/By: 10/26/2018 (7124) : By: [email or web address] Orig Print D/T: S: 10/26/2018 (7483) PAGE 3 Signed Report [id number] 12:12:00* Test Item Value Reference Range Interpretation Comments GLUBED (test code = GLUBED) 172 MG/DL 70-110 H Performed by certified petroleum refining equipment operator at [facility] CBC W/AUTO [id number] 09:09:00* Test Item Value Reference Range Interpretation Comments WHITE BLOOD CELL (test code = WBC) 8.92 x10 3/uL 4.5-11.0 N RED BLOOD CELL (test code = RBC) 4.57 x10 6/uL 4.00-5.60 N HEMOGLOBIN (test code = HGB) 13.7 g/dL 12.5-16.9 N HEMATOCRIT (test code = HCT) 42.5 % 37.5-50.7 N MEAN CELL VOLUME (test code = MCV) 93.0 fL 81.0-99.0 MEAN CELL HGB (test code = MCH) 30.0 pg 27.0-33.0 N MEAN CELL HGB CONCETRATION (test code = MCHC) 32.2 g/dL 33.0-37. 0 L RED CELL DISTRIBUTION WIDTH CV (test code = RDW) 13.7 % 11.5- 14.5 N RED CELL DISTRIBUTION WIDTH SD (test code = RDW-SD) 46.6 fL 37 .0-54.0 N PLATELET COUNT (test code = PLT) 203 x10 3/uL 150-400 N MEAN PLATELET VOLUME (test code = MPV) 9.7 fL 7.0-9.0 H NEUTROPHIL % (test code = NT%) 66.8 % 56.0-77.0 N IMMATURE GRANULOCYTE % (test code = IG%) 0.3 % 0.0-2.0 N LYMPHOCYTE % (test code = LY%) 16.4 % 14.0-32.0 N MONOCYTE % (test code = MO%) 9.3 % 4.8-9.0 H EOSINOPHIL % (test code = EO%) 6.4 % 0.3-3.7 H BASOPHIL % (test code = BA%) 0.8 % 0.0-2.0 N NUCLEATED RBC % (test code = NRBC%) 0.0 % 0-0 N NEUTROPHIL # (test code = NT#) 5.96 x10 3/uL 2.0-7.6 N IMMATURE GRANULOCYTE # (test code = IG#) 0.03 x10 3/uL 0.00-0.03 N LYMPHOCYTE # (test code = LY#) 1.46 x10 3/uL 1.0-3.8 N MONOCYTE # (test code = MO#) 0.83 x10 3/uL 0.1-0.8 H EOSINOPHIL # (test code = EO#) 0.57 x10 3/uL 0.0-0.2 H BASOPHIL # (test code = BA#) 0.07 x10 3/uL 0.0-0.2 N NUCLEATED RBC # (test code = NRBC#) 0.00 x10 3/uL 0.0-0.1 N MANUAL DIFF REQUIRED (test code = MDIFF) NO BASIC METABOLIC [id number] 08:21:00* Test Item Value Reference Range Interpretation Comments SODIUM (test code = NA) 134 mEq/L 134-147 N POTASSIUM (test code = K) 3.8 mEq/L 3.4-5.0 N CHLORIDE (test code = CL) 102 mEq/L 100-108 N CARBON DIOXIDE (test code = CO2) 21 mEq/L 21-33 N ANION GAP (test code = GAP) 15 0-20 N GLUCOSE (test code = GLU) 198 mg/dL 70-110 H BLOOD UREA NITROGEN (test code = BUN) 32 mg/dL 7-18 H GLOMERULAR FILTRATION RATE (test code = GFR) 34.6 90-95 L Units of measure = ml/min/1.73 m2 CREATININE (test code = CREAT) 2.0 mg/dL 0.6-1.3 H CALCIUM (test code = CA) 8.5 mg/dL 8.0-10.5 N [id number] 08:21:00* Test Item Value Reference Range Interpretation Comments PHOSPHOROUS (test code = PHOS) 2.7 mg/dL 2.5-4.9 N [id number] 08:21:00* Test Item Value Reference Range Interpretation Comments MAGNESIUM (test code = MAG) 1.80 mg/dL 1.8-2.4 N [id number] 08:04:00* Test Item Value Reference Range Interpretation Comments GLUBED (test code = GLUBED) 228 MG/DL 70-110 H Performed by certified petroleum refining equipment operator at [facility] [id number] 20:19:00* Test Item Value Reference Range Interpretation Comments GLUBED (test code = GLUBED) 118 MG/DL 70-110 H Performed by certified petroleum refining equipment operator at [facility] [id number] 18:52:00* Test Item Value Reference Range Interpretation Comments GLUBED (test code = GLUBED) 64 MG/DL 70-110 L Performed by certified petroleum refining equipment operator at [facility] [id number] 17:45:00* Test Item Value Reference Range Interpretation Comments GLUBED (test code = GLUBED) 93 MG/DL 70-110 N Performed by certified petroleum refining equipment operator at [facility] [id number] 12:55:00* Test Item Value Reference Range Interpretation Comments GLUBED (test code = GLUBED) 184 MG/DL 70-110 H Performed by certified petroleum refining equipment operator at [facility] CBC W/AUTO [id number] 09:33:00* Test Item Value Reference Range Interpretation Comments WHITE BLOOD CELL (test code = WBC) 9.30 x10 3/uL 4.5-11.0 N RED BLOOD CELL (test code = RBC) 4.86 x10 6/uL 4.00-5.60 N HEMOGLOBIN (test code = HGB) 14.5 g/dL 12.5-16.9 N HEMATOCRIT (test code = HCT) 43.0 % 37.5-50.7 N MEAN CELL VOLUME (test code = MCV) 88.5 fL 81.0-99.0 N MEAN CELL HGB (test code = MCH) 29.8 pg 27.0-33.0 N MEAN CELL HGB CONCETRATION (test code = MCHC) 33.7 g/dL 33.0-37. 0 N RED CELL DISTRIBUTION WIDTH CV (test code = RDW) 13.6 % 11.5- 14.5 N RED CELL DISTRIBUTION WIDTH SD (test code = RDW-SD) 43.7 fL 37 .0-54.0 N PLATELET COUNT (test code = PLT) 211 x10 3/uL 150-400 N MEAN PLATELET VOLUME (test code = MPV) 9.7 fL 7.0-9.0 H NEUTROPHIL % (test code = NT%) 62.1 % 56.0-77.0 N IMMATURE GRANULOCYTE % (test code = IG%) 0.4 % 0.0-2.0 N LYMPHOCYTE % (test code = LY%) 17.7 % 14.0-32.0 N MONOCYTE % (test code = MO%) 8.8 % 4.8-9.0 N EOSINOPHIL % (test code = EO%) 10.0 % 0.3-3.7 H BASOPHIL % (test code = BA%) 1.0 % 0.0-2.0 N NUCLEATED RBC % (test code = NRBC%) 0.0 % 0-0 N NEUTROPHIL # (test code = NT#) 5.77 x10 3/uL 2.0-7.6 N IMMATURE GRANULOCYTE # (test code = IG#) 0.04 x10 3/uL 0.00-0.03 H LYMPHOCYTE # (test code = LY#) 1.65 x10 3/uL 1.0-3.8 N MONOCYTE # (test code = MO#) 0.82 x10 3/uL 0.1-0.8 H EOSINOPHIL # (test code = EO#) 0.93 x10 3/uL 0.0-0.2 H BASOPHIL # (test code = BA#) 0.09 x10 3/uL 0.0-0.2 N NUCLEATED RBC # (test code = NRBC#) 0.00 x10 3/uL 0.0-0.1 N MANUAL DIFF REQUIRED (test code = MDIFF) NO [id number] 08:43:00* Test Item Value Reference Range Interpretation Comments GLUBED (test code = GLUBED) 206 MG/DL 70-110 H Performed by certified petroleum refining equipment operator at [facility] BASIC METABOLIC [id number] 07:33:00* Test Item Value Reference Range Interpretation Comments SODIUM (test code = NA) 133 mEq/L 134-147 L POTASSIUM (test code = K) 3.7 mEq/L 3.4-5.0 N CHLORIDE (test code = CL) 101 mEq/L 100-108 N CARBON DIOXIDE (test code = CO2) 24 mEq/L 21-33 N ANION GAP (test code = GAP) 12 0-20 N GLUCOSE (test code = GLU) 213 mg/dL 70-110 H BLOOD UREA NITROGEN (test code = BUN) 25 mg/dL 7-18 H GLOMERULAR FILTRATION RATE (test code = GFR) 36.7 90-95 L Units of measure = ml/min/1.73 m2 CREATININE (test code = CREAT) 1.9 mg/dL 0.6-1.3 H CALCIUM (test code = CA) 8.5 mg/dL 8.0-10.5 N HEPATIC FUNCTION [id number] 07:33:00* Test Item Value Reference Range Interpretation Comments TOTAL PROTEIN (test code = PROT) 7.3 g/dL 6.4-8.2 N ALBUMIN (test code = ALB) 3.00 g/dL 3.4-5.0 L BILIRUBIN TOTAL (test code = BILT) 0.80 mg/dL 0.0-1.0 N BILIRUBIN DIRECT (test code = BILD) 0.10 MG/DL 0.0-0.30 BILIRUBIN INDIRECT (test code = BILIND) 0.70 MG/DL SGOT/AST (test code = AST) 46 IUnit/L 15-37 H SGPT/ALT (test code = ALT) 70 IUnit/L 15-65 H ALKALINE PHOSPHATASE TOTAL (test code = ALKP) 98 IUnit/L 20-125 N [id number] 07:33:00* Test Item Value Reference Range Interpretation Comments PHOSPHOROUS (test code = PHOS) 2.8 mg/dL 2.5-4.9 N [id number] 07:33:00* Test Item Value Reference Range Interpretation Comments MAGNESIUM (test code = MAG) 1.90 mg/dL 1.8-2.4 N [id number] 20:53:00* Test Item Value Reference Range Interpretation Comments GLUBED (test code = GLUBED) 255 MG/DL 70-110 H Performed by certified petroleum refining equipment operator at [facility] UR PROTEIN [id number] 18:27:00* Test Item Value Reference Range Interpretation Comments UR PROTEIN RANDOM (test code = PROTU) 208 mg/dL Note: Change in UNITS of MEASUREMENT. The Reference Range and Method Performance specificationshave not been established for this fluid. The test resultshould be correlated into the clinical context forinterpretation. UR CREATININE [id number] 18:27:00* Test Item Value Reference Range Interpretation Comments UR CREATININE RANDOM (test code = CREATU) 55.3 mg/dL The Reference Range and Method Performance specificationshave not been established for this fluid. The test resultshould be correlated into the clinical context forinterpretation. [id number] 17:56:00* Test Item Value Reference Range Interpretation Comments GLUBED (test code = GLUBED) 301 MG/DL 70-110 H Performed by certified petroleum refining equipment operator at [facility] [id number] 12:24:00* Test Item Value Reference Range Interpretation Comments GLUBED (test code = GLUBED) 295 MG/DL 70-110 H Performed by certified petroleum refining equipment operator at [facility] [id number] 11:56:00* Test Item Value Reference Range Interpretation Comments HGBA1C% (test code = HGBA1C%) 10.2 %A1C 4.8-6.0 H [id number] 07:53:00* Test Item Value Reference Range Interpretation Comments GLUBED (test code = GLUBED) 282 MG/DL 70-110 H Performed by certified petroleum refining equipment operator at [facility] BASIC METABOLIC [id number] 05:17:00* Test Item Value Reference Range Interpretation Comments SODIUM (test code = NA) 136 mEq/L 134-147 N POTASSIUM (test code = K) 4.0 mEq/L 3.4-5.0 N CHLORIDE (test code = CL) 102 mEq/L 100-108 N CARBON DIOXIDE (test code = CO2) 27 mEq/L 21-33 N ANION GAP (test code = GAP) 11 0-20 N GLUCOSE (test code = GLU) 282 mg/dL 70-110 H BLOOD UREA NITROGEN (test code = BUN) 26 mg/dL 7-18 H GLOMERULAR FILTRATION RATE (test code = GFR) 39.1 90-95 L Units of measure = ml/min/1.73 m2 CREATININE (test code = CREAT) 1.8 mg/dL 0.6-1.3 H CALCIUM (test code = CA) 8.8 mg/dL 8.0-10.5 N [id number] 05:17:00* Test Item Value Reference Range Interpretation Comments MAGNESIUM (test code = MAG) 1.90 mg/dL 1.8-2.4 N CBC W/AUTO [id number] 05:07:00* Test Item Value Reference Range Interpretation Comments WHITE BLOOD CELL (test code = WBC) 7.93 x10 3/uL 4.5-11.0 N RED BLOOD CELL (test code = RBC) 4.71 x10 6/uL 4.00-5.60 N HEMOGLOBIN (test code = HGB) 14.1 g/dL 12.5-16.9 N HEMATOCRIT (test code = HCT) 41.8 % 37.5-50.7 N MEAN CELL VOLUME (test code = MCV) 88.7 fL 81.0-99.0 N MEAN CELL HGB (test code = MCH) 29.9 pg 27.0-33.0 N MEAN CELL HGB CONCETRATION (test code = MCHC) 33.7 g/dL 33.0-37. 0 N RED CELL DISTRIBUTION WIDTH CV (test code = RDW) 13.6 % 11.5- 14.5 N RED CELL DISTRIBUTION WIDTH SD (test code = RDW-SD) 44.3 fL 37 .0-54.0 N PLATELET COUNT (test code = PLT) 196 x10 3/uL 150-400 N MEAN PLATELET VOLUME (test code = MPV) 9.2 fL 7.0-9.0 H NEUTROPHIL % (test code = NT%) 56.4 % 56.0-77.0 N IMMATURE GRANULOCYTE % (test code = IG%) 0.4 % 0.0-2.0 N LYMPHOCYTE % (test code = LY%) 22.3 % 14.0-32.0 N MONOCYTE % (test code = MO%) 10.3 % 4.8-9.0 H EOSINOPHIL % (test code = EO%) 9.7 % 0.3-3.7 H BASOPHIL % (test code = BA%) 0.9 % 0.0-2.0 N NUCLEATED RBC % (test code = NRBC%) 0.0 % 0-0 N NEUTROPHIL # (test code = NT#) 4.47 x10 3/uL 2.0-7.6 N IMMATURE GRANULOCYTE # (test code = IG#) 0.03 x10 3/uL 0.00-0.03 N LYMPHOCYTE # (test code = LY#) 1.77 x10 3/uL 1.0-3.8 N MONOCYTE # (test code = MO#) 0.82 x10 3/uL 0.1-0.8 H EOSINOPHIL # (test code = EO#) 0.77 x10 3/uL 0.0-0.2 H BASOPHIL # (test code = BA#) 0.07 x10 3/uL 0.0-0.2 N NUCLEATED RBC # (test code = NRBC#) 0.00 x10 3/uL 0.0-0.1 N MANUAL DIFF REQUIRED (test code = MDIFF) NO URINALYSIS [id number] 20:54:00* Test Item Value Reference Range Interpretation Comments UA COLOR (test code = COLU) YELLOW YEL/STRAW UA APPEARANCE (test code = APPU) SL CLOUDY CLEAR UA GLUCOSE DIPSTICK (test code = DGLUU) 3+ NEGATIVE A UA BILIRUBIN DIPSTICK (test code = BILU) NEGATIVE NEGATIVE UA KETONE DIPSTICK (test code = KETU) NEGATIVE NEGATIVE UA SPECIFIC GRAVITY (test code = SGU) 1.022 1.005-1.030 N UA BLOOD DIPSTICK (test code = JACKY) 1+ NEGATIVE A UA PH DIPSTICK (test code = LIZZETTE) 5.0 5.0-7.0 N UA PROTEIN DIPSTICK (test code = PROU) 3+ NEGATIVE A UA UROBILINIOGEN DIPSTICK (test code = URO) 0.2 mg/dL 0.2-1.0 UA NITRITE DIPSTICK (test code = ISABEL) NEGATIVE NEGATIVE UA LEUKOCYTE ESTERASE DIPSTICK (test code = LEUU) NEGATIVE NEGA TIVE UA WBC (test code = WBCU) 0-3 WBC/HPF 0-3 UA RBC (test code = RBCU) 0-3 RBC/HPF 0-3 UA BACTERIA (test code = BACU) TRACE /HPF NONE SEEN UA SQUAMOUS CELLS (test code = SQU) 0-5 /HPF NONE SEEN UA HYALINE CAST (test code = HYALU) 11-20 /LPF NONE SEEN UA MUCUS (test code = MUCU) TRACE /LPF NONE SEEN - CT CHEST W/O [id number] 19:44:00 Name: MAXWELL HICKS JR [facility] : 1960 Age/S: 58 / M [address] [place] [address] Unit #: [id number] Loc: [place], [place] [address] Phys: Jong Weiss MD Acct: [id number] Dis Date: Status: REG ER PHONE #: [phone] Exam Date: 10/23/20181837 FAX #: [phone] Reason: Chest Pain EXAMS: CPT CODE: [id number] CT CHEST W/O CONTRAST 21867 Clinical Indication: Chest Pain, right flank pain Comparison: None TECHNIQUE: Helical imaging was performed without injection of IV contrast, from the chest through the symphysis with multiplanar reformations obtained. IV CONTRAST: No IV contrast was administered. GI CONTRAST: No oral contrast was administered. DLP: 889 mGy-cm FINDINGS: Evaluations of the internal organs are limited due to the lack of IV contrast. CT CHEST WITHOUT CONTRAST: LUNG PARENCHYMA AND PLEURA: There are no lung nodules. There is no significant interstitial lung disease. There are no pleural effusions. There is no pneumothorax. AIRWAY: The central airway is normal. LYMPH NODES: No axillary, hilar or mediastinal lymphadenopathy is seen. Calcified mediastinal lymph nodes are present. HEART: The heart is normal in size. There is no pericardial effusion. Moderate coronary calcification is present. VASCULAR STRUCTURES: The pulmonary arteries and great vessels are unremarkable. The thoracic aorta is within normal limits.. The superior vena cava is unremarkable. ESOPHAGUS: No gross abnormalities. OSSEOUS STRUCTURES: There are no significant osseous abnormalities seen. Old right rib fractures are present. ABDOMEN AND PELVIS WITHOUT CONTRAST: LIVER: The liver has normal contour and is unremarkable. GALLBLADDER: The gallbladder contains gallstones without pericholecystic fluid or wall thickening. PAGE 1 Signed Report (CONTINUED) Name: MAXWELL HICKS JR [facility] : 1960 Age/S: 58 / M [address] [place] [address] Unit #: [id number] Loc: [place] [address] Phys: Jong Weiss MD Acct: [id number] Dis Date: Status: REG PHONE #: [phone] Exam Date: 10/23/20181837 FAX #: [phone] Reason: Chest Pain EXAMS: CPT CODE: [id number] CT CHEST W/O CONTRAST 79296 <Continued> PANCREAS: The pancreas is unremarkable. SPLEEN: The spleen is unremarkable. ADRENALS: The right adrenal gland is unremarkable. The left adrenal gland is unremarkable. KIDNEYS: There is no evidence of renal or ureteral calculi. There is no evidence of hydronephrosis. BOWEL: The visualized portion of the esophagus is unremarkable. The stomach is unremarkable. The small bowel is normal in caliber and there is no evidence of masses or obstruction. The colon is normal in caliber without any masses. APPENDIX: The appendix is not visualized and there are no secondary inflammatory changes near the cecum to suggest an acute appendicitis. PELVIS: There are no pelvic mass. The urinary bladder is under distended with thickened bladder salas. The prostate and seminal vesicles are unremarkable. PERITONEUM: There is no evidence for free intraperitoneal fluid or air. SOFT TISSUES: The soft tissues are unremarkable. There is no evidence of masses or hernias. LYMPH NODES: There is no evidence of mesenteric, retroperitoneal, or inguinal lymphadenopathy. VASCULATURE: The abdominal aorta is normal in caliber. MUSCULOSKELETAL: No aggressive bone lesions are seen. Mild spondylosis affects the lumbar spine. IMPRESSION: No acute findings in the CT chest. No evidence of nephrolithiasis or obstructive ureterolithiasis. Cholelithiasis without evidence of cholecystitis. Thickened urinary bladder salas. Correlate for possible cystitis. PAGE 2 Signed Report (CONTINUED) Name: MAXWELL HICKS JR [facility] : 1960 Age/S: 58 / M [address] [place] [address] Unit #: [id number] Loc: [place] [address] Phys: Jong Weiss MD Acct: [id number] Dis Date: Status: REG ER PHONE #: [phone] Exam Date: 10/23/2018 1838 FAX #: [phone] Reason: Chest Pain EXAMS: CPT CODE: [id number] CT CHEST W/O CONTRAST 51517 <Continued> SL: [id number] at 1944 Reported and signed by: Gopal Ortiz M.D. CC: Jong Weiss MD Technologist:Rita Ulloa, RT(R)(CT) CTDI: DLP: Trnscb Date/Time: 10/23/2018 (1943) LesV Orig Print D/T: S: 10/23/2018 (1946) PAGE 3 Signed Report - CT ABD PELVIS W/O [id number] 19:44:00 Name: MAXWELL HICKS JR [facility] : 1960 Age/S: 58 / M [address] [place] [address] Unit #: [id number] Loc: [place] [address] Phys: Jong Weiss MD Acct: [id number] Dis Date: Status: REG ER PHONE #: [phone] Exam Date: 10/23/20181837 FAX #: [phone] Reason: right flank pain EXAMS: CPT CODE: [id number] CT ABD PELVIS W/O CONT 34964 Clinical Indication: Chest Pain, right flank pain Comparison: None TECHNIQUE: Helical imaging was performed without injection of IV contrast, from the chest through the symphysis with multiplanar reformations obtained. IV CONTRAST: No IV contrast was administered. GI CONTRAST: No oral contrast was administered. DLP: 889 mGy-cm FINDINGS: Evaluations of the internal organs are limited due to the lack of IV contrast. CT CHEST WITHOUT CONTRAST: LUNG PARENCHYMA AND PLEURA: There are no lung nodules. There is no significant interstitial lung disease. There are no pleural effusions. There is no pneumothorax. AIRWAY: The central airway is normal. LYMPH NODES: No axillary, hilar or mediastinal lymphadenopathy is seen. Calcified mediastinal lymph nodes are present. HEART: The heart is normal in size. There is no pericardial effusion. Moderate coronary calcification is present. VASCULAR STRUCTURES: The pulmonary arteries and great vessels are unremarkable. The thoracic aorta is within normal limits.. The superior vena cava is unremarkable. ESOPHAGUS: No gross abnormalities. OSSEOUS STRUCTURES: There are no significant osseous abnormalities seen. Old right rib fractures are present. ABDOMEN AND PELVIS WITHOUT CONTRAST: LIVER: The liver has normal contour and is u nremarkable. GALLBLADDER: The gallbladder contains gallstones with out pericholecystic fluid or wall thickening. PAGE 1 Signed Report (CONTINUED) Name: MAXWELL HICKS JR [facility] : 1960 Age/S: 58 / M [address] [place] [address] Unit #: [id number] Loc: [place] [address] Phys: Jong Weiss MD Acct: [id number] Dis Date: Status: REG ER PHONE #: [phone] Exam Date: 10/23/20181837 FAX #: [phone] Reason: righ t flank pain EXAMS: CPT CODE: [id number] CT ABD PELVIS W/O CONT 88507 <Continued> PANCREAS: The pancreas is unremarkable. SPLEEN: The spleen is unremarkable. ADRENALS: The right adrenal gland is unremarkable. The left adrenal gland is unremarkable. KIDNEYS: There is no evidence of renal or ureteral calculi. There is no evidence of hydronephrosis. BOWEL: The visualized portion of the esophagus is unremarkable. The stomach is unremarkable. The small bowel is normal in caliber and there is no evidence of masses or obstruction. The colon is normal in caliber without any masses. APPENDIX: The appendix is not visualized and there are no secondary inflammatory changes near the cecum to suggest an acute appendicitis. PELVIS: There are no pelvic mass. The urinary bladder is under distended with thickened bladder salas. The prostate and seminal vesicles are unremarkable. PERITONEUM: There is no evidence for free intraperitoneal fluid or air. SOFT TISSUES: The soft tissues are unremarkable. There is no evidence of masses or hernias. LYMPH NODES: There is no evidence of mesenteric, retroperitoneal, or inguinal lymphadenopathy. VASCULATURE: The abdominal aorta is normal in caliber. MUSCULOSKELETAL: No aggressive bone lesions are seen. Mild spondylosis affects the lumbar spi ne. IMPRESSION: No acute findings in the CT chest. No evidence of nephrolithiasis or obstructive ureterolithiasis. Chol elithiasis without evidence of cholecystitis. Thickened urinary bladder salas. Correlate for possible cystitis. PAGE 2 Signed Report (CONTINUED) Name: MAXWELL OROURKE [facility] : [birth year] Age/S: 58 / M [address] [place] [address] Unit #: [id number] Loc: [place] [address] Phys: Jong Weiss MD Acct: [id number] Dis Date: Status: REG ER PHONE #: [phone] Exam Date: 10/23/2018 1838 FAX #: [phone] R daljit: right flank pain EXAMS: CPT CODE: [id number] CT ABD PELVIS W/O CONT 64802 <Continued> SL: [id number] at 1944 Reported and signed by: Gopal Ortiz M.D. CC: Jong Weiss MD Technologist:Cynthia Kay, RT(R)(CT) CTDI: DLP: Trnscb Date/Time: 10/23/2018 (1943) [email or web address] Orig Print D/T: S: 10/23/2018 (1946) PAGE 3 Signed Report - CT HEAD/BRAIN W/O [id number] 18:51:00 Name: MAXWELL HICKS JR [facility] [place] : 1960 Age/S: 58 / M [address] [place] [address] Unit #: [id number] Loc: [place] [address] Phys: Jong Weiss MD Acct: [id number] Dis Date: Status: REG ER PHONE #: [phone] Exam Date: 10/23/2018 1838 FAX #: [phone] Reason: headache EXAMS: CPT CODE: [id number] CT HEAD/BRAIN W/O CONT 24434 STUDY: - CT HEAD/BRAIN W/O CONT 10/23/2018 5:01 PM Ordering Physician: Jong Weiss MD Patient Name: MAXWELL HICKS JR MR: [id number] : 1960; Age: 58 years y/o Male Clinical Indication: headache Comparison: October 05, 2017 CT head TECHNIQUE: Multiple contiguous transaxial noncontrast CT images were obtained through the head. Coronal and sagittal reformatted images were prepared. DOSE: CT imaging performed at this location utilizes radiation dose optimization technique which includes one or more of the followin) Automated exposure control; 2) Adjustment of the mA and/or kV according to patient's size; 3) Use of iterative reconstruction techniques. DLP (mGy-cm): 419 FINDINGS: BRAIN PARENCHYMA: Mild diffuse age-appropriate atrophy is present associated with mild nonspecific periventricular low attenuation most consistent with old microangiopathic ischemic change. Vascular calcifications in the carotid siphons and intradural vertebral arteries. Age-indeterminate appearing lacunar infarct in the left thalamus. No evidence of acute intracranial hemorrhage, mass lesion, mass effect, mid line shift, or extra-axial fluid collection. VENTRICLES: The later al ventricles, third ventricle, fourth ventricle, and basilar cisterns are appropriate for degree of atrophy present. PARANASAL SINUSES: The visualized portions of the paranasal sinuses are clear. MAS TOIDS: Clear. ORBITS: The visualized portions of the orbits are no rmal. SOFT TISSUES: No significant abnormality. PAGE 1 Signed Report (CONTINUED) Name: MAXWELL DANIELS JR [facility] [place] : 2 Age/S: 58 / M [address] [place] [address] Blvd Unit #: [id number] Loc: [place], [place] [address] Phys: Jong Weiss MD Acct: [id number] Dis Date: Status: REG ER PHONE #: [phone] Exam Date: 10/23/2018 1838 FAX #: [phone] Re ason: headache EXAMS: CPT CODE: [id number] CT HEAD/BRAIN W/O CONT 26030 <Continued> SKULL: No acute fracture or suspicious osseous lesion. IMPRESSION: No acute intracranial abnormality. Age-indeterminate, chronic appearing, lacunar infarct in the left thalamus. SL: WR1-H at 1850 Reported and signed by: Keith Tellez M.D. CC: Jong Weiss MD Technologist:RT [place](R)(CT) CTDI: DLP: Trnscb Date/Time: 10/23/2018 (1850) [email or web address] Orig Print D/T: S: 10/23/2018 (1853) PAGE 2 Signed Report B-TYPE NATRIURETIC [id number] 18:24:00* Test Item Value Reference Range Interpretation Comments B-TYPE NATRIURETIC PEPTIDE (test code = BNP) 22.3 PG/ML 0-100 N BASIC METABOLIC [id number] 18:19:00* Test Item Value Reference Range Interpretation Comments SODIUM (test code = NA) 133 mEq/L 134-147 L POTASSIUM (test code = K) 4.4 mEq/L 3.4-5.0 N CHLORIDE (test code = CL) 98 mEq/L 100-108 L CARBON DIOXIDE (test code = CO2) 28 mEq/L 21-33 N ANION GAP (test code = GAP) 11 0-20 N GLUCOSE (test code = GLU) 354 mg/dL 70-110 H BLOOD UREA NITROGEN (test code = BUN) 23 mg/dL 7-18 H GLOMERULAR FILTRATION RATE (test code = GFR) 34.6 90-95 L Units of measure = ml/min/1.73 m2 CREATININE (test code = CREAT) 2.0 mg/dL 0.6-1.3 H CALCIUM (test code = CA) 9.3 mg/dL 8.0-10.5 N HEPATIC FUNCTION [id number] 18:19:00* Test Item Value Reference Range Interpretation Comments TOTAL PROTEIN (test code = PROT) 7.9 g/dL 6.4-8.2 N ALBUMIN (test code = ALB) 3.30 g/dL 3.4-5.0 L BILIRUBIN TOTAL (test code = BILT) 0.70 mg/dL 0.0-1.0 N BILIRUBIN DIRECT (test code = BILD) 0.20 MG/DL 0.0-0.30 N BILIRUBIN INDIRECT (test code = BILIND) 0.50 MG/DL SGOT/AST (test code = AST) 76 IUnit/L 15-37 H SGPT/ALT (test code = ALT) 108 IUnit/L 15-65 H ALKALINE PHOSPHATASE TOTAL (test code = ALKP) 119 IUnit/L 20-125 N [id number] 18:19:00* Test Item Value Reference Range Interpretation Comments LIPASE (test code = LIP) 125 IUnit/L 73-393 N [id number] 18:19:00* Test Item Value Reference Range Interpretation Comments TROPONIN-I (test code = TROPI) < 0.015 ng/mL 0.000-0.045 N Negative: <= 0.045 Positive: >= 0.046 Correlation with serial results, other cardiac markers andclinical findings is necessary to determine the clinicalsignificance of this result. Results using different methodologies should not be comparedto one another as quantitative results may vary by method. - XR CHEST 1 [id number] 17:35:00 FAX: Jong Mcleod MD [phone] [place]: St: PRE Name: MAXWELL REN JR [facility] : [birth year] 63 Age/S: 58/M [address] [place] [address] Unit #: [id number] Loc: GQuanERS2 [place] [address] Phys: Jong Weiss MD Acct: [id number] Dis Date: Status: PRE ER PHONE #: [phone] Exam Date: 10/23/20181732 FAX #: [phone] Reason: Chest Pain EXAMS: CPT CODE: [id number] XR CHEST 1 V 41871 Clinical Indication: Chest Pain Comparison: October 05, 2017 FINDINGS: The frontal chest radiograph shows normal lung volumes. No interstitial or airspace opa cities are seen. No pleural effusions are present. No pneumothorax is se en. The heart is normal in size. The trachea is midline. There are no clinically significant osseous abnormalities noted. IMPRESSION: No chest radiographic evidence of acute cardiopulmon rl disease. SL: [id number] Electronically Sign ed by Ethel Ortiz on 10/23/2018 at 7421 Reported an d signed by: Gopal Ortiz M.D. CC: Jong Weiss MD Technologist: PORTILLO Bo RT(R) Trnscrd Date/Time/By: 10/23/2018 (0268) : By: Robin.LNV Orig Print D/T: S: 10/23/2018 (4211) PAGE 1 Signed Report CBC W/AUTO DIFF 2018-10-23 17:29:00* Test Item Value Reference Range Interpretation Comments WHITE BLOOD CELL (test code = WBC) 9.33 x10 3/uL 4.5-11.0 N RED BLOOD CELL (test code = RBC) 5.14 x10 6/uL 4.00-5.60 N HEMOGLOBIN (test code = HGB) 15.2 g/dL 12.5-16.9 N HEMATOCRIT (test code = HCT) 44.5 % 37.5-50.7 N MEAN CELL VOLUME (test code = MCV) 86.6 fL 81.0-99.0 N MEAN CELL HGB (test code = MCH) 29.6 pg 27.0-33.0 N MEAN CELL HGB CONCETRATION (test code = MCHC) 34.2 g/dL 33.0-37. 0 N RED CELL DISTRIBUTION WIDTH CV (test code = RDW) 13.4 % 11.5- 14.5 N RED CELL DISTRIBUTION WIDTH SD (test code = RDW-SD) 41.9 fL 37 .0-54.0 N PLATELET COUNT (test code = PLT) 213 x10 3/uL 150-400 N MEAN PLATELET VOLUME (test code = MPV) 9.0 fL 7.0-9.0 N NEUTROPHIL % (test code = NT%) 69.8 % 56.0-77.0 N IMMATURE GRANULOCYTE % (test code = IG%) 0.5 % 0.0-2.0 N LYMPHOCYTE % (test code = LY%) 13.9 % 14.0-32.0 L MONOCYTE % (test code = MO%) 8.0 % 4.8-9.0 N EOSINOPHIL % (test code = EO%) 6.8 % 0.3-3.7 H BASOPHIL % (test code = BA%) 1.0 % 0.0-2.0 N NUCLEATED RBC % (test code = NRBC%) 0.0 % 0-0 N NEUTROPHIL # (test code = NT#) 6.51 x10 3/uL 2.0-7.6 N IMMATURE GRANULOCYTE # (test code = IG#) 0.05 x10 3/uL 0.00-0.03 H LYMPHOCYTE # (test code = LY#) 1.30 x10 3/uL 1.0-3.8 N MONOCYTE # (test code = MO#) 0.75 x10 3/uL 0.1-0.8 N EOSINOPHIL # (test code = EO#) 0.63 x10 3/uL 0.0-0.2 H BASOPHIL # (test code = BA#) 0.09 x10 3/uL 0.0-0.2 N NUCLEATED RBC # (test code = NRBC#) 0.00 x10 3/uL 0.0-0.1 N MANUAL DIFF REQUIRED (test code = MDIFF) NO CHEMISTRY 8 [id number] 17:23:00* Test Item Value Reference Range Interpretation Comments ISTAT-SODIUM (test code = NAP) MMOL/L 134-147 ISTAT-POTASSIUM (test code = KP) MMOL/L 3.4-5.0 ISTAT-CHLORIDE (test code = CLP) MMOL/L 100-108 ISTAT CARBON DIOXIDE (test code = ISTAT-CO2) mmol/L 21-33 N ISTAT CALCIUM IONIZED (test code = ISTAT-ZARINA) MG/DL 1.12-1.3 2 ISTAT-GLUCOSE (test code = GLUP) MG/DL 70-110 H ISTAT-BUN (test code = BUNP) MG/DL 7-18 H BEDSIDE CREATININE (test code = CREATBED) MG/DL 0.6-1.3 H GLOMERULAR FILTRATION RATE POC (test code = GFRBED) 42 ML/MIN CHEMISTRY 8 [id number] 17:23:00* Test Item Value Reference Range Interpretation Comments ISTAT-SODIUM (test code = NAP) 133 MMOL/L 134-147 L ISTAT-POTASSIUM (test code = KP) 4.5 MMOL/L 3.4-5.0 N ISTAT-CHLORIDE (test code = CLP) 96 MMOL/L 100-108 L Performed by certified petroleum refining equipment operator at [facility] ISTAT CARBON DIOXIDE (test code = ISTAT-CO2) 26.0 mmol/L 21-33 N ISTAT CALCIUM IONIZED (test code = ISTAT-ZARINA) 1.23 MG/DL 1.12-1.3 2 N ISTAT-GLUCOSE (test code = GLUP) 367 MG/DL 70-110 H ISTAT-BUN (test code = BUNP) 26 MG/DL 7-18 H BEDSIDE CREATININE (test code = CREATBED) 1.8 MG/DL 0.6-1.3 H GLOMERULAR FILTRATION RATE POC (test code = GFRBED) 42 ML/MIN Bedside Oostlcc3189-00-40 08:00:00* Test Item Value Reference Range Interpretation Comments Bedside Glucose (test code = 66185-2) 335 70-120 H Meter ID: [id number] [facility] Hospitalodium Level 2018-01-07 05:46:00* Test Item Value Reference Range Interpretation Comments Sodium Level (test code = 2951-2) 133 136-145 L [facility] HospitalPotassium Hjxie9103-94-76 05:46:00* Test Item Value Reference Range Interpretation Comments Potassium Level (test code = 2823-3) 4.9 3.5-5.1 [facility] HospitalChloride [id number] 05:46:00* Test Item Value Reference Range Interpretation Comments Chloride Level (test code = 2075-0) 103 98-107 [facility] HospitalCarbon Dioxide Icopc5429-37-66 05:46:00* Test Item Value Reference Range Interpretation Comments Carbon Dioxide Level (test code = 8-9) 19 22-29 L [facility] HospitalAnion Knk5569-55-73 05:46:00* Test Item Value Reference Range Interpretation Comments Anion Gap (test code = 54345-5) 15.9 8-16 [facility] HospitalBlood Urea Mokzjvkt9559-99-91 05:46:00* Test Item Value Reference Range Interpretation Comments Blood Urea Nitrogen (test code = 3094-0) 28 7-26 H [facility] HospitalCreatinine2018-08-03 05:46:00* Test Item Value Reference Range Interpretation Comments Creatinine (test code = 2160-0) 1.57 0.72-1.25 H [facility] HospitalBUN/Creatinine Udwpl0098-71-39 05:46:00* Test Item Value Reference Range Interpretation Comments BUN/Creatinine Ratio (test code = 3097-3) 18 6-25 [facility] HospitalEstimat Glomerular Filtration Rate 2018-01-07 05:46:00* Test Item Value Reference Range Interpretation Comments Estimat Glomerular Filtration Rate (test code = 98321-2) 46 >60 L Ranges were taken from the National Kidney Disease Education Program and the [facility] Foundation literature.Reference ranges:60 or greater: Ztvaok43-52 ( for 3 consecutive months): Chronic kidney disease 15 or less: Kidney failureUT Health East Texas Carth[facility] HospitalGlucose Aunwm4382-69-38 05:46:00* Test Item Value Reference Range Interpretation Comments Glucose Level (test code = SBL8369) 271 74-118 H [facility] HospitalCalcium Jzymj1453-19-55 05:46:00* Test Item Value Reference Range Interpretation Comments Calcium Level (test code = 88326-7) 9.6 8.4-10.2 [facility] HospitalMagnesium Xtrnb9063-73-30 05:46:00* Test Item Value Reference Range Interpretation Comments Magnesium Level (test code = 48034-9) 2.1 1.3-2.1 [facility] HospitalWhite Blood Qmrsp6741-37-46 05:16:00* Test Item Value Reference Range Interpretation Comments White Blood Count (test code = 6690-2) 10.63 4.8-10.8 [facility] HospitalRed Blood Pcvte2537-90-70 05:16:00* Test Item Value Reference Range Interpretation Comments Red Blood Count (test code = 789-8) 4.11 4.3-5.7 L [facility] HospitalHemoglobin2018-08-03 05:16:00* Test Item Value Reference Range Interpretation Comments Hemoglobin (test code = 14482-9) 11.9 14.0-18.0 L [facility] HospitalHematocrit2018-08-03 05:16:00* Test Item Value Reference Range Interpretation Comments Hematocrit (test code = 4544-3) 36.1 38.2-49.6 L [facility] HospitalMean Corpuscular Qgtwjs8272-66-74 05:16:00* Test Item Value Reference Range Interpretation Comments Mean Corpuscular Volume (test code = 787-2) 87.8 81-99 [facility] HospitalMean Corpuscular Lqelsxbdmc6003-85-81 05:16:00* Test Item Value Reference Range Interpretation Comments Mean Corpuscular Hemoglobin (test code = 785-6) 29.0 28-32 [facility] HospitalMean Corpuscular Hemoglobin Concent 2018-01-07 05:16:00* Test Item Value Reference Range Interpretation Comments Mean Corpuscular Hemoglobin Concent (test code = 786-4) 33.0 31-35 [facility] HospitalRed Cell Distribution Lklym9085-32-27 05:16:00* Test Item Value Reference Range Interpretation Comments Red Cell Distribution Width (test code = 97342-2) 12.1 11.7 -14.4 [facility] HospitalPlatelet Limpn9639-71-22 05:16:00* Test Item Value Reference Range Interpretation Comments Platelet Count (test code = 777-3) 255 140-360 [facility] HospitalNeutrophils (%) (Auto)2018-01-07 05:16:00 * Test Item Value Reference Range Interpretation Comments Neutrophils (%) (Auto) (test code = 06382-9) 90.5 38.7-80.0 H [facility] HospitalLymphocytes (%) (Auto)2018-01-07 05:16:00 * Test Item Value Reference Range Interpretation Comments Lymphocytes (%) (Auto) (test code = 736-9) 7.4 18.0-39.1 L [facility] HospitalMonocytes (%) (Auto)2018-01-07 05:16:00* Test Item Value Reference Range Interpretation Comments Monocytes (%) (Auto) (test code = 5905-5) 1.1 4.4-11.3 L [facility] HospitalEosinophils (%) (Auto)2018-01-07 05:16:00 * Test Item Value Reference Range Interpretation Comments Eosinophils (%) (Auto) (test code = 713-8) 0.1 0.0-6.0 [facility] HospitalBasophils (%) (Auto)2018-01-07 05:16:00* Test Item Value Reference Range Interpretation Comments Basophils (%) (Auto) (test code = 706-2) 0.2 0.0-1.0 [facility] HospitalIM GRANULOCYTES %2018-01-07 05:16:00* Test Item Value Reference Range Interpretation Comments IM GRANULOCYTES % (test code = IM GRANULOCYTES %) 0.7 0.0- 1.0 [facility] HospitalNeutrophils # (Auto)2018-01-07 05:16:00* Test Item Value Reference Range Interpretation Comments Neutrophils # (Auto) (test code = 751-8) 9.6 2.1-6.9 H [facility] HospitalLymphocytes # (Auto)2018-01-07 05:16:00* Test Item Value Reference Range Interpretation Comments Lymphocytes # (Auto) (test code = 93371-6) 0.8 1.0-3.2 L [facility] HospitalMonocytes # (Auto)2018-01-07 05:16:00* Test Item Value Reference Range Interpretation Comments Monocytes # (Auto) (test code = 742-7) 0.1 0.2-0.8 L [facility] HospitalEosinophils # (Auto)2018-01-07 05:16:00* Test Item Value Reference Range Interpretation Comments Eosinophils # (Auto) (test code = 711-2) 0.0 0.0-0.4 [facility] HospitalBasophils # (Auto)2018-01-07 05:16:00* Test Item Value Reference Range Interpretation Comments Basophils # (Auto) (test code = 704-7) 0.0 0.0-0.1 [facility] HospitalAbsolute Immature Granulocyte (auto 2018-01-07 05:16:00* Test Item Value Reference Range Interpretation Comments Absolute Immature Granulocyte (auto (santiago t code = Absolute Immature Granulocyte (auto) 0.07 0-0.1 [facility] HospitalHemoglobin A1c Hzlmkwf2576-84-92 05:35:00 * Test Item Value Reference Range Interpretation Comments Hemoglobin A1c Percent (test code = Hemoglobin A1c Percent) 8.8 4.0-7.0 H [facility] HospitalTotal Fbhlytwej5007-22-00 06:16:00* Test Item Value Reference Range Interpretation Comments Total Bilirubin (test code = 1975-2) 0.6 0.2-1.2 [facility] HospitalAspartate Amino Transf (AST/SGOT) 2018-01-05 06:16:00* Test Item Value Reference Range Interpretation Comments Aspartate Amino Transf (AST/SGOT) (test code = Aspartate Amino Transf (AST/SGOT)) 16 5-34 [facility] HospitalAlanine Aminotransferase (ALT/SGPT) 2018-01-05 06:16:00* Test Item Value Reference Range Interpretation Comments Alanine Aminotransferase (ALT/SGPT) (test code = 1742-6) 18 0-55 [facility] HospitalTotal Ivzhkpa1908-04-59 06:16:00* Test Item Value Reference Range Interpretation Comments Total Protein (test code = 2885-2) 7.2 6.5-8.1 [facility] HospitalAlbumin2018-08-01 06:16:00* Test Item Value Reference Range Interpretation Comments Albumin (test code = 1751-7) 2.7 3.5-5.0 L [facility] HospitalGlobulin2018-08-01 06:16:00* Test Item Value Reference Range Interpretation Comments Globulin (test code = 98028-1) 4.5 2.3-3.5 H [facility] HospitalAlbumin/Globulin Royam0682-19-59 06:16:00 * Test Item Value Reference Range Interpretation Comments Albumin/Globulin Ratio (test code = 1759-0) 0.6 0.8-2.0 L [facility] HospitalAlkaline Bvtxhcfojpc2184-55-61 06:16:00* Test Item Value Reference Range Interpretation Comments Alkaline Phosphatase (test code = 6768-6) 81 40-150 [facility] HospitalBody Fluid Jfmi9067-19-32 19:24:00* Test Item Value Reference Range Interpretation Comments Body Fluid Type (test code = 27752-7) SYNOVIAL [facility] HospitalBody Fluid Jgnxf3262-74-85 19:24:00* Test Item Value Reference Range Interpretation Comments Body Fluid Color (test code = 6824-7) YELLOW [facility] HospitalBody Fluid Vnduqvruqk9380-79-17 19:24:00 * Test Item Value Reference Range Interpretation Comments Body Fluid Appearance (test code = 9335-1) TURBID [facility] HospitalBody Fluid LYS8357-10-34 19:24:00* Test Item Value Reference Range Interpretation Comments Body Fluid WBC (test code = 6743-9) 92893 [facility] HospitalBody Fluid JVM2075-27-41 19:24:00* Test Item Value Reference Range Interpretation Comments Body Fluid RBC (test code = 6741-3) 319 [facility] HospitalBody Fluid Eotvptrodst4094-92-68 19:23:00 * Test Item Value Reference Range Interpretation Comments Body Fluid Neutrophils (test code = 98446-8) 91 [facility] HospitalBody Fluid Zzuptrqhiwh4249-81-36 19:23:00 * Test Item Value Reference Range Interpretation Comments Body Fluid Lymphocytes (test code = 28974969) 3 [facility] HospitalBody Fluid Ohgkhnvxl3201-36-78 19:23:00* Test Item Value Reference Range Interpretation Comments Body Fluid Monocytes (test code = 65455-0) 6 [facility] HospitalBody Fluid Total Cells Gxhcyuj3969-14-66 19:23:00* Test Item Value Reference Range Interpretation Comments Body Fluid Total Cells Counted (test code = 02818-5) 100 [facility] HospitalKNEE RIGHT THREE DWSBU0719-59-00 17:37:00 [facility] [address] [address] Patient Name: MAXWELL HICKS MR #: [id number] : Age/Sex: 57/M Req #: [id number] Adm Physician: Ordered by: TRAVIS EID [employer] Report #: [id number] Location: ER Room/Bed: Procedure: [id number] DX/KNEE RIGHT THREE VIEWS Exa m Date: 01/04/18 Exam Time: 1700 REPORT STATUS: Signed PROCEDURE: KNEE RIGHT THREE VIEWS COMPARISON: None. I NDICATIONS: RIGHT KNEE PAIN, FALL WEDNESDAY FINDINGS: 3 views of the right knee (AP, lateral, and oblique) There are no fractures, dislocation s, lytic or blastic lesions. The bones are well-mineralized. There is chondro calcinosis of the knee joint. Mild osteoarthritis with sharpening of the tibi al spines, small lateral and patellofemoral osteophytes. Prominent vascular calcifications CONCLUSION: No acute fracture or dislocation of the right knee. 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 Dictated by: Cynthia Reese on 01/04/2018 at 17:37 Electronically approved by: Mikhail Reese on 01/04/2018 at 17:37 Dictated By: ANTOINETTE HARRIS MD Audrey ctronically Signed By: ANTOINETTE HARRIS MD on 01/04/181736 Transcribed By: LIZBETH MITCHELL on 01/04/181736 COPY TO: TRAVIS EID NP
[2020-03-07] MEDS ORDERED: VANCOMYCIN 1GM/NS 250 ML 250 ML ONE (16:58)
[2020-03-07] MEDS ORDERED: CEFEPIME 1GM/NS 0.9% 50 ML 100 ML IV ONE (16:58)
[2020-03-07] MEDS ORDERED: INSULIN REGULAR, HUMAN 100 UNIT/1 ML 3ML VIAL SQ STA (17:21)
--- NOTE | 2020-03-07 17:26 | Diagnostic Imaging Report ---
Right elbow, 3 views Right forearm, 2 views INDICATION: ^swollen ^[id number] ^1641 Comparison: None available. Discussion: Probable right elbow joint effusion is noted concerning for occult fracture. No definite displaced fracture deformity is identified. There is a questionable cortical irregularity of the radial head concerning for possible nondisplaced radial head fracture. Prominent enthesophyte is noted at the insertion of the triceps tendon and at the origin of the flexor tendon off the medial epicondyle. The the radial and ulnar shafts and distal portion appeared to be grossly intact. Normal alignment is noted at the level of the wrist joint. Radiocapitellar alignment is intact. Diffuse arteriovascular calcifications are noted. IMPRESSION: 1. Right elbow joint effusion with concern for possible nondisplaced radial head fracture. 2. Intact alignment of the elbow and wrist joints. No other acute displaced fracture or dislocation is identified. 3. Diffuse arterial calcifications. Signed by: Osiel Ziegler MD on 03/07/2020 5:23 PM
--- NOTE | 2020-03-07 17:26 | Diagnostic Imaging Report ---
Right elbow, 3 views Right forearm, 2 views INDICATION: ^swollen ^[id number] ^1641 Comparison: None available. Discussion: Probable right elbow joint effusion is noted concerning for occult fracture. No definite displaced fracture deformity is identified. There is a questionable cortical irregularity of the radial head concerning for possible nondisplaced radial head fracture. Prominent enthesophyte is noted at the insertion of the triceps tendon and at the origin of the flexor tendon off the medial epicondyle. The the radial and ulnar shafts and distal portion appeared to be grossly intact. Normal alignment is noted at the level of the wrist joint. Radiocapitellar alignment is intact. Diffuse arteriovascular calcifications are noted. IMPRESSION: 1. Right elbow joint effusion with concern for possible nondisplaced radial head fracture. 2. Intact alignment of the elbow and wrist joints. No other acute displaced fracture or dislocation is identified. 3. Diffuse arterial calcifications. Signed by: Osiel Ziegler MD on 03/07/2020 5:23 PM
--- NOTE | 2020-03-07 17:40 | NUR ---
Contacted [facility] for transfer as pt needs continuity of care and per Chain Pegger there are no beds at [facility].
[2020-03-07] MEDS ORDERED: INSULIN REGULAR, HUMAN 100 UNIT/1 ML 3ML VIAL ONE (18:14)
--- NOTE | 2020-03-07 18:26 | NUR ---
[facility] called to transport pt to [facility]
--- NOTE | 2020-03-07 18:38 | NUR ---
Report to RYAN Looney at [facility] ER
== END 2020-03-07 19:23 | disposition other institution (70) ==
LOC: FSED 15:40
DX: S52.121A Displaced fracture of head of right radius, initial encounter for closed fracture (principal); L03.113 Cellulitis of right upper limb; S80.211A Abrasion, right knee, initial encounter; I10 Essential (primary) hypertension; E11.65 Type 2 diabetes mellitus with hyperglycemia; E78.5 Hyperlipidemia, unspecified; M10.9 Gout, unspecified; Z11.59 Encounter for screening for other viral diseases
CPT/HCPCS: 29125; 73080; 73090; 80048; 80076; 81003; 85025; 87040; 96372; 99284; J0692; J1817; J2270; J2405; J3370; U0002